=== PATIENT | male | born 1960 | race Caucasian/White ===

== ENCOUNTER → 2017-06-24 | Outpatient (CLI) | payer OTHER ==
--- NOTE | 2017-06-24 13:48 | RAD ---
Examination: Left ribs, four views History: Fell Findings: No definite rib fracture, contour deformity or osteolytic process. Impression: No acute findings left ribs. Reported By:
== END ==
LOC: RAD 12:49
PROVIDERS: ATTEND Psychiatry & Neurology Neurology
DX: R07.89 Other chest pain (principal)
CPT/HCPCS: 71111

== ENCOUNTER → 2017-07-11 | Outpatient (CLI) | payer OTHER ==
[2017-07-11 12:03] LABS: BASOPHILS % (AUTO) 1.1 % (0.2-1.0); EOSINOPHILS # (AUTO) 0.1 x10^3/uL (0.0-0.2); EOSINOPHILS % (AUTO) 3.6 % (0.9-2.9); HEMATOCRIT 34.8 % (42.0-54.0); HEMOGLOBIN 12.2 g/dL (13.5-18.0); LYMPHOCYTES # (AUTO) 0.6 X10^3/uL (1.3-2.9); LYMPHOCYTES % (AUTO) 27.1 % (21.0-51.0); MEAN CORPUSCULAR HEMOGLOBIN 31.7 pg (27.0-34.0); MEAN CORPUSCULAR HGB CONC 34.9 g/dL (33.0-35.0); MEAN CORPUSCULAR VOLUME 90.9 fL (80.0-100.0); MONOCYTES # (AUTO) 0.2 x10^3/uL (0.3-0.8); NEUTROPHILS # (AUTO) 1.2 x10^3/uL (2.2-4.8); NEUTROPHILS % (AUTO) 57.2 % (42.0-75.0); PLATELET COUNT 45 X10^3/uL (150.0-450.0); RED BLOOD COUNT 3.83 X10^6/uL (4.7-6.0); RED CELL DISTRIBUTION WIDTH 15.3 % (11.6-16.5); WHITE BLOOD COUNT 2.1 X10^3/uL (3.6-10.0)
[2017-07-11 12:14] LABS: ALANINE AMINOTRANSFERASE 32 Units/L (12-78); ALBUMIN 2.8 g/dL (3.4-5.0); ALKALINE PHOSPHATASE 94 Units/L (46-116); ASPARTATE AMINO TRANSFERASE 57 Units/L (15-37); BILIRUBIN,DIRECT 0.33 mg/dL (0-0.2); BLOOD UREA NITROGEN 18 mg/dL (7-18); CALCIUM 8.3 mg/dL (8.5-10.1); CARBON DIOXIDE 22.1 mmol/L (21-32); CHLORIDE 108 mmol/L (98-107); COR NA(FOR HYPERGLY) 141 mmol/L (136-145); CREATININE 1.48 mg/dL (0.70-1.30); SODIUM 138 mmol/L (136-145); TOTAL PROTEIN 7.7 g/dL (6.4-8.2); eGFR BLACK RACES > 60 (>60); eGFR NON BLACK RACES 52 (>60)
[2017-07-11 12:43] LABS: PLATELET MORPHOLOGY COMMENT NORMAL (NORMAL)
== END ==
LOC: LAB 11:30
PROVIDERS: ATTEND Nurse Practitioner Family
DX: D69.6 Thrombocytopenia, unspecified (principal)
CPT/HCPCS: 36415; 80048; 80076; 85025

== ENCOUNTER 2017-09-04 20:08 | Emergency (ER) | payer OTHER ==
[2017-09-04 20:22] VITALS: BMI 37.6
[2017-09-04 22:49] LABS: EOSINOPHILS # (AUTO) 0.1 x10^3/uL (0.0-0.2); HEMATOCRIT 38.3 % (42.0-54.0); HEMOGLOBIN 13.5 g/dL (13.5-18.0); LYMPHOCYTES # (AUTO) 0.9 X10^3/uL (1.3-2.9); LYMPHOCYTES % (AUTO) 19.1 % (21.0-51.0); MEAN CORPUSCULAR HEMOGLOBIN 32.3 pg (27.0-34.0); MEAN CORPUSCULAR HGB CONC 35.1 g/dL (33.0-35.0); MEAN CORPUSCULAR VOLUME 91.9 fL (80.0-100.0); MEAN PLATELET VOLUME 7.7 fL (7.4-11.0); MONOCYTES # (AUTO) 0.6 x10^3/uL (0.3-0.8); MONOCYTES % (AUTO) 12.9 % (0.0-13.0); NEUTROPHILS # (AUTO) 3.1 x10^3/uL (2.2-4.8); PLATELET COUNT 55 X10^3/uL (150.0-450.0); RED BLOOD COUNT 4.17 X10^6/uL (4.7-6.0); RED CELL DISTRIBUTION WIDTH 15.8 % (11.6-16.5); WHITE BLOOD COUNT 4.9 X10^3/uL (3.6-10.0)
[2017-09-04 23:04] LABS: ALBUMIN 3.1 g/dL (3.4-5.0); CALCIUM 8.1 mg/dL (8.5-10.1); CARBON DIOXIDE 22.8 mmol/L (21-32); COR CA(FOR HYPOALB) 8.8 mg/dL (8.5-10.1); CREATININE 2.26 mg/dL (0.70-1.30); TOTAL PROTEIN 8.2 g/dL (6.4-8.2)
--- NOTE | 2017-09-05 00:02 | CT ---
CT abdomen and pelvis without contrast Indication: Abdominal pain with nausea and vomiting Technique: Helical images through the abdomen and pelvis without contrast. Coronal and sagittal refor mats provided. Comparison: No recent similar priors available. Findings: Review of bone windows shows no lesion. Limited images through the lower chest shows chroni c mild hyperinflation. Coronary artery calcifications noted. Abdomen: There is markedly cirrhotic in nodular appearing liver, without large lesions seen, within t he limits of a noncontrast study. Recanalization of the umbilical vein with upper abdominal varices n oted. Portal vein enlargement is noted with splenomegaly. Few paraesophageal and perigastric varices noted. The adrenal glands, pancreas and kidneys show no acute abnormality. Minimal vascular calcifica tions noted. The stomach and small bowel are normal. No acute colonic abnormalities seen. Appendix is slightly prominent. Gallstones are seen within the gallbladder which is generally collapsed. Pelvis: The urinary bladder and rectum are normal. Prostate gland is normal. Impression: 1. Slightly prominent appendix without marked periappendiceal stranding. This could be within normal limits but early acute appendicitis is not completely excluded in the correct clinical setting. Close clinical and imaging follow-up recommended. 2. Advanced cirrhosis the liver with portal venous hypertension and upper abdominal varices. 3. Gallstones without specific evidence of acute cholecystitis 4. Mild COPD, spine degenerative changes and other findings as above. Reported By:
--- NOTE | 2017-09-05 00:14 | DR.GENAD ---
HPI - PCP Primary Care Physician: RAHEEL OROZCO - Complaint/Symptoms Chief Complaint Doctors Comments: Patient states that he has an appointment for [facility] tomorrow at 11AM. He has been seen there on several visits. He has cirrhosis of the liver with oortal venous hypertension and upper abdominal varices., Gallstones w/o evidence of acute cholecystitis. He has Advanced cirrhosis of the liver with p;ortal venous hypertension and uper abdominal varicies. Case was discussed with surgery supervisor extrusion Dr Torres and it was decided to have patient transferred to afacility with adequate support personnell. He is in no acute distress. Chief Complaint:: N/V/D FOR THE PAST 3 DAYS HAS APPT IN AM WITH [facility] FOR XRAYS FOR GALLBLADDER WAS TOLD BY [facility] TO COME HERE TO BE SEEN. 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 - Source History Provided: Patient - Mode of Arrival Mode of Arrival: Ambulatory - Timing Onset of Chief Complaint: 09/04/17 PMH - PMH Past Medical History: No Past Medical History: Asthma, Cirrhosis, Diabetes, Headaches, Hypertension, Kidney Stones, Sleep Apnea Past Medical History Comment: CPAP TO SLEEP SETTINGS 15 Past Surgical History: Yes Past Surgical History Comment: CELLULITIS BILATERAL BUTTOCKS I&D - Family History History of Family Medical Conditions: Yes Family Medical History: Diabetes Mellitus, Cancer, [place], Heart Failure, Sudden Cardiac , Hypertension - Social History Does patient currently use any type of tobacco product: No Have you used tobacco products in the last 12 months: No Type of Tobacco Use: None Does any household member use tobacco: No Alcohol Use: None Do you use any recreational Drugs:: No Lives With: Alone Lives Where: Home - infectious screening In the last 2 months have you had wt loss of >10#?: NO Have you had fever, night sweats or hemotysis?: No Have you traveled outside the country in the last 6 months?: No Isolation: Standard ROS - Review of Systems Eyes: No Symptoms Reported ENTM: No Symptoms Reported Respiratoy: No Symptoms Reported Cardiovascular: No Symptoms Reported Gastrointestinal/Abdominal: No Symptoms Reported Neurological: No Symptoms Reported, Headache Integumentary: No Symptoms Reported Hematologic/Lymphatic: No Symptoms Reported Endocrine: No Symptoms Reported Psychiatric: No Symptoms Reported All Other Systems: Reviewed and Negative PE - Vital Signs Vitals: Temperature 98.6 F Pulse Rate [Right Brachial] 95 Pulse Rate 97 Respiratory Rate 22 Blood Pressure [Right Arm] 130/60 Blood Pressure 135/74 O2 Sat by Pulse Oximetry 96 - General General Appearance: Alert, In No Apparent Distress - Head Head Exam: Normal Inspection, Atraumatic - Eyes Eye exam: Normal Appearance, PERRL, EOMI - ENT ENT Exam: Normal Exam External Ear Exam: Normal External Inspection TM/Canal Exam: Bilateral Normal Nose Exam: Normal Nose Exam Mouth Exam: Normal Inspection Throat Exam: Normal Inspection - Neck Neck Exam: Normal Inspection - Chest Chest Inspection: Normal Inspection - Respiratory Respiratory Exam: Normal Lung Sounds Bilat Respiratory Exam: Bilateral Clear to Auscultation - Cardiovascular Cardiovascular Exam: Regular Rate, Normal Rhythm - Abdominal Exam Abdominal Exam: Normal Inspection Abdominal Tenderness: RUQ - Extremities Extremities Exam: Normal Inspection, Full ROM, Edema - Back Back Exam: Normal Inspection, Full ROM - Neurologic Neurological Exam: Alert, Oriented X3, CN II-XII Intact - Psychiatric Psychiatric Exam: Normal Affect - Skin Skin Exam: Warm, Dry Course - Reevaluation 1st: Unchanged - Education/Counseling Educated On: Diagnosis ROR - Labs Reviewed Result Diagrams: 09/04/17 22:42 09/04/17 22:42 Laboratory: WBC 4.9 X10^3/uL (3.6-10.0) 09/04/17 22:42 RBC 4.17 X10^6/uL (4.7-6.0) L 09/04/17 22:42 Hgb 13.5 g/dL (13.5-18.0) 09/04/17 22:42 Hct 38.3 % (42.0-54.0) L 09/04/17 22:42 MCV 91.9 fL (80.0-100.0) 09/04/17 22:42 MCH 32.3 pg (27.0-34.0) 09/04/17 22:42 MCHC 35.1 g/dL (33.0-35.0) H 09/04/17 22:42 RDW 15.8 % (11.6-16.5) 09/04/17 22:42 Plt Count 55 X10^3/uL (150.0-450.0) L 09/04/17 22:42 MPV 7.7 fL (7.4-11.0) 09/04/17 22:42 Neut % (Auto) 64.0 % (42.0-75.0) 09/04/17 22:42 Lymph % (Auto) 19.1 % (21.0-51.0) L 09/04/17 22:42 [place] % (Auto) 12.9 % (0.0-13.0) 09/04/17 22:42 Eos % (Auto) 3.0 % (0.9-2.9) H 09/04/17 22:42 Baso % (Auto) 1.0 % (0.2-1.0) 09/04/17 22:42 Neut # (Auto) 3.1 x10^3/uL (2.2-4.8) 09/04/17 22:42 Lymph # (Auto) 0.9 X10^3/uL (1.3-2.9) L 09/04/17 22:42 [place] # (Auto) 0.6 x10^3/uL (0.3-0.8) 09/04/17 22:42 Eos # (Auto) 0.1 x10^3/uL (0.0-0.2) 09/04/17 22:42 Baso # (Auto) 0.0 X10^3/uL (0.0-0.1) 09/04/17 22:42 Absolute Nucleated RBC 0.0 /100WBC 09/04/17 22:42 Sodium 135 mmol/L (136-145) L 09/04/17 22:42 Corrected Sodium 143 mmol/L (136-145) 09/04/17 22:42 Potassium 4.2 mmol/L (3.5-5.1) 09/04/17 22:42 Chloride 104 mmol/L (98-107) 09/04/17 22:42 Carbon Dioxide 22.8 mmol/L (21-32) 09/04/17 22:42 BUN 26 mg/dL (7-18) H 09/04/17 22:42 Creatinine 2.26 mg/dL (0.70-1.30) H 09/04/17 22:42 Est GFR (MDRD) Af Amer 39 (>60) L 09/04/17 22:42 Est GFR (MDRD) Non-Af 32 (>60) L 09/04/17 22:42 Glucose 422 mg/dL (65-99) H 09/04/17 22:42 Calcium 8.1 mg/dL (8.5-10.1) L 09/04/17 22:42 Corrected Calcium 8.8 mg/dL (8.5-10.1) 09/04/17 22:42 Total Bilirubin 1.90 mg/dL (0.2-1.0) H 09/04/17 22:42 AST 40 Units/L (15-37) H 09/04/17 22:42 ALT 45 Units/L (12-78) 09/04/17 22:42 Alkaline Phosphatase 105 Units/L (46-116) 09/04/17 22:42 Total Protein 8.2 g/dL (6.4-8.2) 09/04/17 22:42 Albumin 3.1 g/dL (3.4-5.0) L 09/04/17 22:42 Globulin 5.1 g/dL (2.5-4.5) H 09/04/17 22:42 Albumin/Globulin Ratio 0.6 Ratio (1.1-2.1) L 09/04/17 22:42 Amylase 64 Units/L (25-115) 09/04/17 22:42 Lipase 391 Units/L (73-393) 09/04/17 22:42 - XRAY XRAY Interpreted by: Radiologist (CT Abdomen/pelvis: Slightly prominent appendix without marked periapendiceal stranding. This could be within normal limits but early acute appendicitis is not completely excluded in the correct clinical settng. Close clinical and imaging follow up recommended. Advanced cirrhosis the liver with portal venous hypertension and upper abdominal varices. Gallstones without specific evidence of acute cholecystitis, mild COPD , spine degenerative changes and other findings.) - Diagnosis Discharge Problem: R/o early appendicitis, Advanced cirrhosis of liver, Portal venous hypertension Cholelithiasis Qualifiers: Cholelithiasis location: gallbladder Cholecystitis presence: without cholecystitis Biliary obstruction: without biliary obstruction Qualified Code(s) : K80.20 - Calculus of gallbladder without cholecystitis without obstruction - Discharge Plan Condition: Stable - Follow ups/Referrals Follow ups/Referrals: VIVEK OROZCO [Primary Care Provider] - 3 days - Instructions
[2017-09-05] MEDS ORDERED: HumuLIN R SUBCUT PRN (00:44)
[2017-09-05] MEDS ORDERED: HumuLIN R ONE (00:50)
[2017-09-05 01:58] VITALS: BP 149/67
[2017-09-05] MEDS ORDERED: SNACK - Diabetic Appropriate PO SCH (20:00)
== END 2017-09-05 02:19 | disposition short-term general hospital (02) ==
LOC: ER 20:24
DX: K80.20 Calculus of gallbladder without cholecystitis without obstruction (principal); K74.60 Unspecified cirrhosis of liver; K76.6 Portal hypertension; J44.9 Chronic obstructive pulmonary disease, unspecified
CPT/HCPCS: 36415; 74176; 80053; 82150; 83690; 85025; 96365; 96372; 99284; 99285; A4222; J1815

== ENCOUNTER 2017-11-07 05:48 | Inpatient (IN) ==
[2017-11-07 06:51] VITALS: BMI 37.6
--- NOTE | 2017-11-07 06:55 | DR.GENAD ---
HPI - HPI Comment HPI Comment: PATIENT SAID HE BLEED FOR 10MINS FROM A NOSE SCRATCH. HE IS COUGHING, PRODUCTIVE YELLOW SPUTUM WITH BLOOD STREAKS. FEVER AT HOME. PATIENT DENIES DYSURIA BUT IS HAVING SEVERE RIGHT FLANK PAIN. HIST CIRRHOSIS WITH CHRONIC LIVER DISEASE. HE ALSO HAVE GALL STONES.ALL THESE CHRONIC SYMPTOMS GOT WORSE 2 DAYS AGO. - Complaint/Symptoms Chief Complaint Doctors Comments: CHEST PAIN, RIGHT FLANK PAIN AND N/V TIMES 2 DAY. - Nurses notes reviewed Nurses Notes Review: Yes - Source History Provided: Patient, EMS - Mode of Arrival Mode of Arrival: Stretcher - Timing Came on: Suddenly - Duration Duration: Constant Duration: Days - Severity Severity: Moderate <MOODY MARROQUIN - Last Filed: 11/07/17 08:29> PMH - PMH Past Medical History: Asthma, Cirrhosis, Diabetes, Headaches, Hypertension, Kidney Stones, Sleep Apnea Past Surgical History: Yes - Family History Family Medical History: Diabetes Mellitus, Cancer, [place], Heart Failure, Sudden Cardiac , Hypertension - Social History Do you use any recreational Drugs:: No <MOODY MARROQUIN - Last Filed: 11/07/17 08:29> ROS - Review of Systems Constitutional: Fever, Weakness, Fatigue, Loss of Appetite. negative: Chills Eyes: No Symptoms Reported ENTM: Nose Discharge, Nose Congestion. negative: Ear Pain, Throat Pain Respiratoy: Productive Cough, Short of Breath, Wheezing, Hemoptysis (BLOOD STREAKS) Cardiovascular: Chest Pain Gastrointestinal/Abdominal: Abdominal Pain, Nausea, Vomiting Genitourinary: negative: Dysuria, Frequency, Hematuria Neurological: Weakness, Dizziness. negative: Headache Musculoskeletal: Back Pain, Muscle Pain, Back Integumentary: negative: Change in Color Hematologic/Lymphatic: Easy Bleeding, Easy Bruising Endocrine: No Symptoms Reported All Other Systems: Reviewed and Negative <MOODY MARROQUIN - Last Filed: 11/07/17 08:29> PE - General Limitations: No Limitations General Appearance: Alert - Head Head Exam: Normal Inspection - Eyes Eye exam: Normal Appearance - ENT ENT Exam: Normal External Ear Exam External Ear Exam: Normal External Inspection TM/Canal Exam: Bilateral Normal Nose Exam: Normal Nose Exam Mouth Exam: Normal Inspection Throat Exam: Normal Inspection - Neck Neck Exam: Trachea Midline - Chest Chest Inspection: Symmetric Chest Wall Rise - Respiratory Respiratory Exam: Normal Lung Sounds Bilat Respiratory Exam: Bilateral Clear to Auscultation - Cardiovascular Cardiovascular Exam: Regular Rate, Normal Rhythm, Normal Heart Sounds - Abdominal Exam Abdominal Exam: Normal Bowel Sounds, Soft, Distention, Tenderness. negative: Guarding, Rebound - Extremities Extremities Exam: Edema - Back Back Exam: Paraspinal Tenderness - Neurologic Neurological Exam: Alert, Oriented X3, CN II-XII Intact. negative: Motor Sensory Deficit - Psychiatric Psychiatric Exam: Anxious - Skin Skin Exam: Normal Color <LUANA MARROQUINAshokYesenia - Last Filed: 11/07/17 08:29> - Vital Signs Vitals: Temperature 98.6 F Pulse Rate [Apical] 91 Pulse Rate 80 Respiratory Rate 16 Blood Pressure [Right Arm] 167/71 Blood Pressure 153/70 O2 Sat by Pulse Oximetry 94 MDM - Differential Diagnosis Differential Diagnosis: ABDOMINAL PAIN, CHEST PAIN, N/V, EASY BLEEDING, [place], BOWEL OBSTRUCTION <LUANA MARROQUINDAGMAR - Last Filed: 11/07/17 08:29> Course - Treatment Treatment: SEE ORDERS. - Education/Counseling Education/Counseling: Patient, Education Educated On: Diagnosis <LUANA MARROQUINAshokYesenia - Last Filed: 11/07/17 08:29> - Consultation Called: 11:00 (Dr Enriquez to admit fo further evaluation) <JIGAR DEL RIO - Last Filed: 11/07/17 11:36> ROR - Labs Reviewed Laboratory Results Reviewed?: Yes Result Diagrams: 11/07/17 06:55 11/07/17 06:55 <MOODY MARROQUIN - Last Filed: 11/07/17 08:29> - Labs Reviewed Result Diagrams: 11/07/17 06:55 11/07/17 06:55 - XRAY XRAY Interpreted by: Radiologist (CT ABD/Pel:There are some foci of subsegmental atelectasis in the right lung base. The left lung base is clear. The liver demonstrates a nodular margin suggestive of chirrhosis. No space occupying disease is identified to the limitations of an unehnance examinatin. Cholelithiasis is present. Thee is no evidence for cholecystitis. Splenomegaly ,portal vein enlargement, intra abdominal varices in the recanalization of the umbilical vein is identified all suggestive of portal hypertension. The adrenal glands and pancreas are within normal limits to the limitations of an unenhanced examination. The adrenal glands and pancreas are within normal limits to the limitations of an unenhanced examination. The kidneys are unobstructed and without stones. No ureteral calculi are identified. No enlarged intraperitoneal or retroperitoneal lymphadenopathy is identified. There are no findigns suggestive of diverticulitis or colitis. The apendix is normal. Examination of the pelvis demonstrated no evidence for pelvic masses, pelvic fluid or elvic lymphadenopathy. No bladder abnormality is identified. No lytic or blastic skeletal lesions are identified. Impression: Cirrhosis, splenomegaly and findings suggestive of portal hypertension, cirrhosis, splenomegaly and findings suggestive of portal hypertension as described, cholelithiasis without evidence for cholecystitis) <JIGAR DEL RIO - Last Filed: 11/07/17 11:36> - Labs Reviewed Laboratory: WBC 6.6 X10^3/uL (3.6-10.0) 11/07/17 06:55 RBC 3.75 X10^6/uL (4.7-6.0) L 11/07/17 06:55 Hgb 12.6 g/dL (13.5-18.0) L 11/07/17 06:55 Hct 36.0 % (42.0-54.0) L 11/07/17 06:55 MCV 96.1 fL (80.0-100.0) 11/07/17 06:55 MCH 33.5 pg (27.0-34.0) 11/07/17 06:55 MCHC 34.9 g/dL (33.0-35.0) 11/07/17 06:55 RDW 15.5 % (11.6-16.5) 11/07/17 06:55 Plt Count 60 X10^3/uL (150.0-450.0) L 11/07/17 06:55 MPV 7.4 fL (7.4-11.0) 11/07/17 06:55 Neut % (Auto) 73.8 % (42.0-75.0) 11/07/17 06:55 Lymph % (Auto) 12.6 % (21.0-51.0) L 11/07/17 06:55 [place] % (Auto) 12.2 % (0.0-13.0) 11/07/17 06:55 Eos % (Auto) 1.0 % (0.9-2.9) 11/07/17 06:55 Baso % (Auto) 0.4 % (0.2-1.0) 11/07/17 06:55 Neut # (Auto) 4.9 x10^3/uL (2.2-4.8) H 11/07/17 06:55 Lymph # (Auto) 0.8 X10^3/uL (1.3-2.9) L 11/07/17 06:55 [place] # (Auto) 0.8 x10^3/uL (0.3-0.8) 11/07/17 06:55 Eos # (Auto) 0.1 x10^3/uL (0.0-0.2) 11/07/17 06:55 Baso # (Auto) 0.0 X10^3/uL (0.0-0.1) 11/07/17 06:55 Absolute Nucleated RBC 0.0 /100WBC 11/07/17 06:55 Sodium 137 mmol/L (136-145) 11/07/17 06:55 Corrected Sodium 140 mmol/L (136-145) 11/07/17 06:55 Potassium 4.4 mmol/L (3.5-5.1) 11/07/17 06:55 Chloride 103 mmol/L (98-107) 11/07/17 06:55 Carbon Dioxide 26.2 mmol/L (21-32) 11/07/17 06:55 BUN 18 mg/dL (7-18) 11/07/17 06:55 Creatinine 1.82 mg/dL (0.70-1.30) H 11/07/17 06:55 Est GFR (MDRD) Af Amer 50 (>60) L 11/07/17 06:55 Est GFR (MDRD) Non-Af 41 (>60) L 11/07/17 06:55 Glucose 207 mg/dL (65-99) H 11/07/17 06:55 Calcium 8.6 mg/dL (8.5-10.1) 11/07/17 06:55 Corrected Calcium 9.5 mg/dL (8.5-10.1) 11/07/17 06:55 Total Bilirubin 5.00 mg/dL (0.2-1.0) H 11/07/17 06:55 AST 45 Units/L (15-37) H 11/07/17 06:55 ALT 32 Units/L (12-78) 11/07/17 06:55 Alkaline Phosphatase 92 Units/L (46-116) 11/07/17 06:55 Ammonia 51 umol/L (11-32) H 11/07/17 09:34 Creatine Kinase 174 Units/L (39-308) 11/07/17 06:55 CK-MB (CK-2) < 1.0 ng/mL (0-4.0) 11/07/17 06:55 CK/CKMB % Calc 0.6 % (<4) 11/07/17 06:55 Troponin I 0.02 ng/mL (0-1.5) 11/07/17 06:55 Total Protein 7.6 g/dL (6.4-8.2) 11/07/17 06:55 Albumin 2.9 g/dL (3.4-5.0) L 11/07/17 06:55 Globulin 4.7 g/dL (2.5-4.5) H 11/07/17 06:55 Albumin/Globulin Ratio 0.6 Ratio (1.1-2.1) L 11/07/17 06:55 Amylase 50 Units/L (25-115) 11/07/17 06:55 Lipase 239 Units/L (73-393) 11/07/17 06:55 Specimen Type Random urine 11/07/17 07:53 Urine Color [place] (YELLOW) 11/07/17 07:53 Urine Appearance Clear (CLEAR) 11/07/17 07:53 Urine pH 5.0 (5.0 - 8.0) 11/07/17 07:53 Ur Specific [place] 1.020 (1.000-1.030) 11/07/17 07:53 Urine Protein 2+ (NEGATIVE) 11/07/17 07:53 Urine Glucose (UA) 1+ (NEGATIVE) 11/07/17 07:53 Urine Ketones 1+ (NEGATIVE) 11/07/17 07:53 Urine Occult Blood 4+ (NEGATIVE) 11/07/17 07:53 Urine Nitrite Negative (NEGATIVE) 11/07/17 07:53 Urine Bilirubin 1+ (NEGATIVE) 11/07/17 07:53 Urine Urobilinogen 3+ (NORMAL) 11/07/17 07:53 Ur Leukocyte Esterase 1+ (NEGATIVE) 11/07/17 07:53 Urine RBC 0-2 /HPF (NONE SEEN) 11/07/17 07:53 Urine WBC 0-2 /HPF (NONE SEEN) 11/07/17 07:53 Ur Squamous Epith Cells Rare /HPF (NEGATIVE) 11/07/17 07:53 Urine Bacteria Trace /HPF (NEGATIVE) 11/07/17 07:53 Hyaline Casts Rare /LPF (NEGATIVE) 11/07/17 07:53 Ur Culture Indicated? No/not indicated 11/07/17 07:53 <MOODY MARROQUIN - Last Filed: 11/07/17 08:29> <JIGAR DEL RIO - Last Filed: 11/07/17 11:36> - Diagnosis Discharge Problem: Increased ammonia level Cirrhosis of liver Qualifiers: Hepatic cirrhosis type: unspecified hepatic cirrhosis Ascites presence: without ascites Qualified Code(s): K74.60 - Unspecified cirrhosis of liver Altered mental status Qualifiers: Altered mental status type: unspecified Qualified Code(s): R41.82 - Altered mental status, unspecified - Discharge Plan Disposition: 09 ADMITTED INPATIENT Condition: Stable - Follow ups/Referrals Follow ups/Referrals: VIVEK OROZCO [Primary Care Provider] - 3 days - Instructions
[2017-11-07] MEDS ORDERED: TORADOL 30 MG VIAL IVP ONE (06:57)
[2017-11-07] MEDS ORDERED: ZOFRAN INJ 4 MG VIAL IVP ONE (06:57)
[2017-11-07] MEDS ORDERED: NS 1000 ML 1,000 ML IV SCH (07:00)
[2017-11-07] MEDS ORDERED: ZOFRAN INJ 4 MG VIAL ONE (07:07)
[2017-11-07] MEDS ORDERED: DILAUDID INJ IVP ONE (07:11)
[2017-11-07] MEDS ORDERED: DILAUDID INJ ONE (07:14)
[2017-11-07 07:21] LABS: BASOPHILS % (AUTO) 0.4 % (0.2-1.0); EOSINOPHILS # (AUTO) 0.1 x10^3/uL (0.0-0.2); HEMOGLOBIN 12.6 g/dL (13.5-18.0); LYMPHOCYTES # (AUTO) 0.8 X10^3/uL (1.3-2.9); LYMPHOCYTES % (AUTO) 12.6 % (21.0-51.0); MEAN CORPUSCULAR HEMOGLOBIN 33.5 pg (27.0-34.0); MEAN CORPUSCULAR HGB CONC 34.9 g/dL (33.0-35.0); MEAN CORPUSCULAR VOLUME 96.1 fL (80.0-100.0); MEAN PLATELET VOLUME 7.4 fL (7.4-11.0); MONOCYTES # (AUTO) 0.8 x10^3/uL (0.3-0.8); MONOCYTES % (AUTO) 12.2 % (0.0-13.0); NEUTROPHILS # (AUTO) 4.9 x10^3/uL (2.2-4.8); NEUTROPHILS % (AUTO) 73.8 % (42.0-75.0); PLATELET COUNT 60 X10^3/uL (150.0-450.0); RED BLOOD COUNT 3.75 X10^6/uL (4.7-6.0); RED CELL DISTRIBUTION WIDTH 15.5 % (11.6-16.5); WHITE BLOOD COUNT 6.6 X10^3/uL (3.6-10.0)
[2017-11-07 07:35] LABS: BLOOD UREA NITROGEN 18 mg/dL (7-18); CALCIUM 8.6 mg/dL (8.5-10.1); CARBON DIOXIDE 26.2 mmol/L (21-32); CHLORIDE 103 mmol/L (98-107); COR NA(FOR HYPERGLY) 140 mmol/L (136-145); CREATININE 1.82 mg/dL (0.70-1.30); SODIUM 137 mmol/L (136-145); TROPONIN I 0.02 ng/mL (0-1.5); eGFR NON BLACK RACES 41 (>60)
[2017-11-07 07:39] LABS: ALANINE AMINOTRANSFERASE 32 Units/L (12-78); ALBUMIN 2.9 g/dL (3.4-5.0); ALKALINE PHOSPHATASE 92 Units/L (46-116); AMYLASE 50 Units/L (25-115); ASPARTATE AMINO TRANSFERASE 45 Units/L (15-37); CKMB % 0.6 % (<4); COR CA(FOR HYPOALB) 9.5 mg/dL (8.5-10.1); CREATINE KINASE 174 Units/L (39-308); CREATINE KINASE MB < 1.0 ng/mL (0-4.0); LIPASE 239 Units/L (73-393); TOTAL PROTEIN 7.6 g/dL (6.4-8.2)
[2017-11-07] MEDS ORDERED: PHENERGAN INJ 25 MG IVP ONE (07:52)
[2017-11-07] MEDS ORDERED: PHENERGAN INJ 25 MG IV ONE (07:54)
[2017-11-07] MEDS ORDERED: PHENERGAN INJ 25 MG ONE (07:55)
[2017-11-07 08:22] LABS: BILIRUBIN,URINE 1+ (NEGATIVE); BLOOD/HEMOGLOBIN,URINE 4+ (NEGATIVE); GLUCOSE, URINE 1+ (NEGATIVE); KETONES,URINE 1+ (NEGATIVE); LEUKOCYTE ESTERASE ,URINE 1+ (NEGATIVE); NITRITES,URINE NEGATIVE (NEGATIVE); PROTEIN,URINE 2+ (NEGATIVE); UROBILINOGEN,URINE 3+ (NORMAL)
--- NOTE | 2017-11-07 08:33 | CT ---
HISTORY: Left flank pain Study: CT abdomen pelvis without contrast Comparison: 09/04/2017 Technique: Axial noncontrast images with coronal and sagittal reformats. Dose reduction procedures we re used with mA/kv adjusted for body size. Findings: There are some foci of subsegmental atelectasis in the right lung base. The left lung base is clear. The liver demonstrates a nodular margin suggestive of cirrhosis. No space-occupying disease is identi fied to the limitations of an unenhanced examination. Cholelithiasis is present. There is no evidence for cholecystitis. Splenomegaly, portal vein enlargement, intra-abdominal varices in and recanalizat ion of the umbilical vein is identified all suggestive of portal hypertension. The adrenal glands and pancreas are within normal limits to the limitations of an unenhanced examination. The kidneys are u nobstructed and without stones. No ureteral calculi are identified. No enlarged intraperitoneal or re troperitoneal lymphadenopathy is identified. There are no findings suggestive of diverticulitis or co litis. The appendix is normal. Examination of the pelvis demonstrated no evidence for pelvic masses, pelvic fluid, or pelvic lymphadenopathy. No bladder abnormality is identified. No lytic or blastic sk eletal lesions are identified. IMPRESSION: No evidence for obstructing renal or ureteral calculi Cirrhosis, splenomegaly, and findings suggestive of portal hypertension as described above Cholelithiasis without evidence for cholecystitis Reported By:
[2017-11-07 08:47] LABS: APPEARANCE,URINE CLEAR (CLEAR); COLOR,URINE ORANGE (YELLOW); RBC,URINE 0-2 /HPF (NONE SEEN); SQUAMOUS EPITHELIAL CELL,UR RARE /HPF (NEGATIVE)
[2017-11-07 08:48] LABS: BACTERIA,URINE TRACE /HPF (NEGATIVE); HYALINE CASTS, URINE RARE /LPF (NEGATIVE)
[2017-11-07] MEDS ORDERED: INVANZ INJ 1 GM VIAL ONE (10:19)
[2017-11-07] MEDS ORDERED: NS 100 ML IV + SPIKE MINIBAG* 100 ML IV ONE (10:19)
[2017-11-07] MEDS: CHRONULAC PO SCH (12:22)
--- NOTE | 2017-11-07 15:13 | RAD ---
Exam: Portable chest History 57-year-old male with cough and wheezing Comparison: Previous chest radiograph from 06/24/2017. Findings: Overall heart size and pulmonary vasculature are normal. Patchy infiltrate is seen at the right base. In addition early infiltrate may be present at the left base as well. Remainder the lungs are clear. No significant effusion on either side. Impression: Right basilar infiltrate. Possible developing infiltrate is also noted at the left base Reported By:
[2017-11-07] MEDS: NS 1000 ML 1,000 ML IV SCH (15:21)
[2017-11-07] MEDS: NEURONTIN CAP 300 MG PO SCH ×2 (15:21→21:41)
[2017-11-07] MEDS: ATIVAN TAB 0.5 MG PO SCH ×2 (15:21→21:41)
[2017-11-07] MEDS: HumuLIN R SUBCUT PRN ×2 (17:25→20:10)
[2017-11-07] MEDS: COREG TAB 6.25 MG PO SCH (20:08)
[2017-11-07] MEDS: SNACK - Diabetic Appropriate PO SCH (20:09)
[2017-11-08] MEDS ORDERED: TORADOL 30 MG VIAL IVP ONE (00:57)
[2017-11-08] MEDS ORDERED: TORADOL 30 MG VIAL ONE (01:00)
[2017-11-08] MEDS: ULTRAM PO PRN ×2 (05:25→16:16)
[2017-11-08] MEDS: ATIVAN TAB 0.5 MG PO SCH ×3 (05:28→22:17)
[2017-11-08] MEDS: NS 1000 ML 1,000 ML IV SCH ×3 (05:28→17:31)
[2017-11-08] MEDS: NEURONTIN CAP 300 MG PO SCH ×3 (05:30→22:17)
[2017-11-08] MEDS: HumuLIN R SUBCUT PRN ×4 (06:00→23:39)
[2017-11-08 06:11] LABS: BASOPHILS % (AUTO) 0.4 % (0.2-1.0); EOSINOPHILS # (AUTO) 0.1 x10^3/uL (0.0-0.2); EOSINOPHILS % (AUTO) 1.3 % (0.9-2.9); HEMATOCRIT 32.6 % (42.0-54.0); HEMOGLOBIN 11.4 g/dL (13.5-18.0); LYMPHOCYTES # (AUTO) 0.9 X10^3/uL (1.3-2.9); LYMPHOCYTES % (AUTO) 17.4 % (21.0-51.0); MEAN CORPUSCULAR HEMOGLOBIN 33.9 pg (27.0-34.0); MEAN CORPUSCULAR HGB CONC 35.1 g/dL (33.0-35.0); MEAN CORPUSCULAR VOLUME 96.4 fL (80.0-100.0); MEAN PLATELET VOLUME 7.9 fL (7.4-11.0); MONOCYTES # (AUTO) 0.8 x10^3/uL (0.3-0.8); MONOCYTES % (AUTO) 15.9 % (0.0-13.0); NEUTROPHILS # (AUTO) 3.3 x10^3/uL (2.2-4.8); PLATELET COUNT 53 X10^3/uL (150.0-450.0); RED BLOOD COUNT 3.38 X10^6/uL (4.7-6.0); RED CELL DISTRIBUTION WIDTH 15.5 % (11.6-16.5); WHITE BLOOD COUNT 5.1 X10^3/uL (3.6-10.0)
[2017-11-08 06:18] LABS: ALBUMIN 2.6 g/dL (3.4-5.0); CALCIUM 7.9 mg/dL (8.5-10.1); CARBON DIOXIDE 23.9 mmol/L (21-32); CREATININE 2.01 mg/dL (0.70-1.30)
[2017-11-08] MEDS ORDERED: PriLOSEC PO ONE (08:03)
[2017-11-08] MEDS ORDERED: CHRONULAC ONE (08:03)
[2017-11-08] MEDS ORDERED: MICRO K EXTEN CAP 10 MEQ PO ONE (08:03)
[2017-11-08] MEDS ORDERED: COREG TAB 6.25 MG ONE (08:03)
[2017-11-08] MEDS ORDERED: ALDACTONE TAB 25 MG ONE (08:03)
[2017-11-08] MEDS: CHRONULAC PO SCH (08:13)
[2017-11-08] MEDS: ALDACTONE TAB 25 MG PO SCH (08:13)
[2017-11-08] MEDS: LASIX PO SCH (08:14)
[2017-11-08] MEDS: PriLOSEC PO SCH (08:14)
[2017-11-08] MEDS: MICRO K EXTEN CAP 10 MEQ PO SCH (08:14)
[2017-11-08] MEDS: COREG TAB 6.25 MG PO SCH ×2 (08:14→20:50)
[2017-11-08] MEDS ORDERED: PATIENT'S HOME MEDICATION (Omeprazole [Omeprazole] 40 MG) PO SCH (09:00)
[2017-11-08] MEDS ORDERED: SPIRONOLACTONE 100 MG PO SCH (09:00)
[2017-11-08] MEDS ORDERED: LEVAQUIN PREMIX IV 500 MG 500 MG/100 ML BAG IV SCH (09:00)
[2017-11-08] MEDS ORDERED: PROVENTIL NEB TX 0.083% 2.5MG/ 3ML NEB ONE (09:00)
[2017-11-08] MEDS ORDERED: PATIENT'S HOME MEDICATION (Potassium Chloride [Potassium Chloride] 10 MEQ) PO SCH (09:00)
[2017-11-08] MEDS ORDERED: LEVAQUIN PREMIX IV 500 MG 500 MG/100 ML BAG IV ONE (09:16)
[2017-11-08] MEDS ORDERED: PROVENTIL NEB TX 0.083% 2.5MG/ 3ML ONE (09:18)
[2017-11-08] MEDS: LEVAQUIN PREMIX IV 750 MG 750 MG/150 ML BAG IV SCH (10:00)
[2017-11-08] MEDS: DUONEB 0.5 MG/3 MG NEB SCH ×4 (10:19→21:50)
[2017-11-08] MEDS ORDERED: HumuLIN R ONE (11:35)
[2017-11-08] MEDS ORDERED: DUONEB 0.5 MG/3 MG ONE (12:00)
--- NOTE | 2017-11-08 14:43 | DR.H&P ---
H&P - History & Physical for Day of: H&P Date: 11/07/17 - Chief Complaint Chief Complaint: COUGH, SPUTUM PRODUCTION, HEMATURIA, ABDOMINAL PAIN. SOB - History of Present Illness History of Present Illness: 57 WM ER ADMISSION WITH CO EXCESSIVE BLEEDING, CO BLOOD IN URINE AND ABDOMINAL PAIN, PT CO INCREASE SOB AND PRODUCTIVE COUGH. PT HAD CT ABD PELVIS IN ED, CXR PNEUMONIA. PT HAS CHRONIC LIVER FAILURE DUE TO "FATTY LIVER DISEASE". PT STATES HE IS FOLLOWED BY [facility] IN [place] AND HAS SEEN RAHEEL OROZCO NP AT [facility]. PT HAS HX OF DM AND HTN. PT HAD GENERALIZED JAUNDICE AND INCREASED RESP DISTRESS, ELEVATED LFT'S. PT ADMITTED TO ICU FOR TREATMENT AND EVALUATION OF ACUTE ILLNESS. - Past Medical History Past Medical History: Asthma, Cirrhosis, Diabetes, Headaches, Hypertension, Kidney Stones, Sleep Apnea - Past Surgical History Surgical History: Unknown - Family History Family Medical History: Diabetes Mellitus, Cancer, [place], Heart Failure, Sudden Cardiac , Hypertension - Social History Does patient currently use any type of tobacco product: No Have you used tobacco products in the last 12 months: No Type of Tobacco Use: Cigarettes How many years tobacco product used: 20 Packs per day or dips/chews per day: 3 Does any household member use tobacco: No Alcohol Use: None Drug Use: None - Medications Home Medications: acetaminophen [From Lortab] Allergy (Verified 09/04/17 20:23) aspirin Allergy (Verified 09/04/17 20:23) hydrocodone [From Lortab] Allergy (Verified 09/04/17 20:23) morphine Allergy (Verified 09/04/17 20:23) CONTINUE taking the following medications carvedilol 6.25 mg PO BID 11/07/17 [History] furosemide [Lasix] 40 mg PO DAILY 11/07/17 [History] gabapentin 300 mg PO TID 11/07/17 [History] insulin glargine [Lantus U-100 Insulin] 70 units SUB-Q BID 11/07/17 [History] lorazepam 0.5 mg PO TID 11/07/17 [History] omeprazole 40 mg PO DAILY 11/07/17 [History] ondansetron 4 mg PO Q4-6H PRN 11/07/17 [History] potassium chloride 10 meq PO DAILY 11/07/17 [History] spironolactone [Aldactone] 100 mg PO DAILY 11/07/17 [History] tramadol 50 mg PO TID PRN 11/07/17 [History] - Review of Systems Constitutional: Fever, Chills, Weakness Eyes: No Symptoms Reported ENT: No Symptoms Reported Respiratory: Shortness of Breath, SOB with Excertion, Sputum Cardiovascular: Edema Gastrointestinal: Nausea Genitourinary: No Symptoms Reported Musculoskeletal: Back Pain, Leg Pain Skin: Jaundice Neurological: Weakness, Confusion - Physical Exam Vital Signs: Temperature 98.1 F Pulse Rate [Apical] 86 Pulse Rate 85 Respiratory Rate 20 Blood Pressure [Right Arm] 146/67 Blood Pressure 153/70 O2 Sat by Pulse Oximetry 95 Oriented: Normal Eyes: Other (JAUNDICE TO SCLERA) Ear: Normal Nose: Normal Throat: Dry Respiratory: Rhonchi Throughout, RLL Diminished, LLL Diminished Cardiovascular: Normal, Murmur : Normal Palpation: Liver Enlarged, Other (DIFFUSE ABDOMINAL DISTENTION) Tenderness: RUQ, LUQ, Epigastric, Mild Skin: Other (DIFFUSE JAUNDICE) Psychiatric: Anxiety Affect: Anxious Speech Pattern: Clear, Appropriate - Assessment/Plan (1) Respiratory distress Status: Acute Plan: ADMIT ICU, RESP CONSULT. PNEUMONIA PATHWAY, AM CXR, VERIFY HOME MEDS. RESUME LACTULOSE, DIURETICS, SPUTUM SPECIMEN. SUPPLEMENTAL O2. I & OS, BLOOD SUGAR CONTROL, CARDIAC AND BP MONIORING (2) Hypertension Status: Acute (3) Diabetes Status: Acute (4) Advanced cirrhosis of liver Status: Acute (5) Portal venous hypertension Status: Acute (6) Cholelithiasis Qualifiers: Cholelithiasis location: gallbladder Cholecystitis presence: without cholecystitis Biliary obstruction: without biliary obstruction Qualified Code(s): K80.20 - Calculus of gallbladder without cholecystitis without obstruction Status: Acute (7) Cirrhosis of liver Qualifiers: Hepatic cirrhosis type: unspecified hepatic cirrhosis Ascites presence: without ascites Qualified Code(s): K74.60 - Unspecified cirrhosis of liver Status: Acute (8) Increased ammonia level Status: Acute (9) Altered mental status Qualifiers: Altered mental status type: unspecified Qualified Code(s): R41.82 - Altered mental status, unspecified Status: Acute - Allergies Allergies/Adverse Reactions: Allergies Allergy/AdvReac Type Severity Reaction Status Date / Time acetaminophen [From Lortab] Allergy Verified 09/04/17 20:23 aspirin Allergy Verified 09/04/17 20:23 hydrocodone [From Lortab] Allergy Verified 09/04/17 20:23 morphine Allergy Verified 09/04/17 20:23
[2017-11-08 14:49] LABS: ABG BASE EXCESS -2.2 mmol/L (-2.0-2.0); ABG HCO3 22.4 mmol/L (22-26)
[2017-11-08 14:50] LABS: ABG ALLEN TEST POS
[2017-11-08] MEDS: MAGIC MOUTHWASH MT PRN (18:41)
[2017-11-08] MEDS: SNACK - Diabetic Appropriate PO SCH (22:16)
[2017-11-09] MEDS: DUONEB 0.5 MG/3 MG NEB SCH ×6 (01:51→21:27)
[2017-11-09] MEDS: ULTRAM PO PRN ×3 (03:07→21:20)
[2017-11-09] MEDS: NS 1000 ML 1,000 ML IV SCH ×3 (04:24→15:03)
[2017-11-09] MEDS: ATIVAN TAB 0.5 MG PO SCH ×3 (06:18→21:20)
[2017-11-09] MEDS: NEURONTIN CAP 300 MG PO SCH ×3 (06:19→21:20)
[2017-11-09] MEDS: HumuLIN R SUBCUT PRN ×4 (06:26→21:21)
[2017-11-09 06:43] LABS: BASOPHILS % (AUTO) 0.4 % (0.2-1.0); EOSINOPHILS # (AUTO) 0.1 x10^3/uL (0.0-0.2); EOSINOPHILS % (AUTO) 2.7 % (0.9-2.9); HEMATOCRIT 32.2 % (42.0-54.0); HEMOGLOBIN 11.2 g/dL (13.5-18.0); LYMPHOCYTES # (AUTO) 0.9 X10^3/uL (1.3-2.9); LYMPHOCYTES % (AUTO) 18.1 % (21.0-51.0); MEAN CORPUSCULAR HEMOGLOBIN 33.5 pg (27.0-34.0); MEAN CORPUSCULAR HGB CONC 34.7 g/dL (33.0-35.0); MEAN CORPUSCULAR VOLUME 96.6 fL (80.0-100.0); MEAN PLATELET VOLUME 7.7 fL (7.4-11.0); MONOCYTES # (AUTO) 0.8 x10^3/uL (0.3-0.8); MONOCYTES % (AUTO) 15.6 % (0.0-13.0); NEUTROPHILS # (AUTO) 3.1 x10^3/uL (2.2-4.8); NEUTROPHILS % (AUTO) 63.2 % (42.0-75.0); PLATELET COUNT 55 X10^3/uL (150.0-450.0); RED BLOOD COUNT 3.33 X10^6/uL (4.7-6.0); RED CELL DISTRIBUTION WIDTH 15.3 % (11.6-16.5); WHITE BLOOD COUNT 4.9 X10^3/uL (3.6-10.0)
[2017-11-09] MEDS: MAGIC MOUTHWASH MT PRN ×3 (07:00→21:20)
[2017-11-09 07:27] LABS: ALBUMIN 2.4 g/dL (3.4-5.0); CALCIUM 7.8 mg/dL (8.5-10.1); CARBON DIOXIDE 26.1 mmol/L (21-32); COR CA(FOR HYPOALB) 9.1 mg/dL (8.5-10.1); CREATININE 2.25 mg/dL (0.70-1.30); TOTAL PROTEIN 6.9 g/dL (6.4-8.2)
--- NOTE | 2017-11-09 07:30 | RAD ---
Examination: Portable AP chest History: Dyspnea Comparison reference 11/06/2017 Findings: Continued normal heart size. There is no convincing evidence for pneumonia, atelectasis or other airspace disease. The pleural spaces are well defined. No pneumothorax is seen. Impression: No acute chest findings identified. The Reported By:
[2017-11-09] MEDS: COREG TAB 6.25 MG PO SCH ×2 (08:31→21:20)
[2017-11-09] MEDS: MICRO K EXTEN CAP 10 MEQ PO SCH (08:31)
[2017-11-09] MEDS: PriLOSEC PO SCH (08:31)
[2017-11-09] MEDS: CHRONULAC PO SCH ×2 (08:31→21:20)
[2017-11-09] MEDS: ALDACTONE TAB 25 MG PO SCH (08:31)
[2017-11-09] MEDS: LASIX PO SCH (08:31)
--- NOTE | 2017-11-09 11:08 | PCM.PROG ---
Progress Note - Progress Note for Day of Date: 11/09/17 - Subjective Subjective: 57 WM ER ADMISSION WITH PNEUMONIA AND LIVER FAILURE WITH ELEVATED AMMONIA LEVELS, FLUID RETENTION AND INCREASE PO. PT IS CURRENTLY ON PNEUMONIA PROTOCOL, CO INCREASE SLEEPINESS. PT HAS INCREASED LABOR RESP. PT DENIES PAIN THIS AM. IMPROVING BILIRUBIN, AMMONIA 78 THIS AM. INCREASED LACTULOSE, CONSULT PHARMACY ABOUT RENAL DOSE FOR ATBX, CONTINUE PULMONARY TOILETING - Past Medical Family Social History Past Med/Fam/Surg Hx: No changes since H&P Allergies: Allergies acetaminophen [From Lortab] Allergy (Verified 09/04/17 20:23) aspirin Allergy (Verified 09/04/17 20:23) hydrocodone [From Lortab] Allergy (Verified 09/04/17 20:23) morphine Allergy (Verified 09/04/17 20:) - Review of Systems ROS: No change since H&P - Vital Signs and I&O's Vital Signs: Temperature 98.7 F Pulse Rate [Apical] 88 Pulse Rate 86 Respiratory Rate 20 Blood Pressure [Right Arm] 135/60 Blood Pressure 153/70 O2 Sat by Pulse Oximetry 98 Intake and Output: Intake & Output 11/06/17 11/07/17 11/08/17 11/09/17 11:59 11:59 11:59 11:59 Intake Total 1340 / 1340 2160 / 2160 Output Total 50 / 50 900 / 900 Balance 1290 / 1290 1260 / 1260 - Physical Exam Oriented: Normal Eyes: Other (JAUNDICE TO SCLERA) Ear: Normal Nose: Normal Throat: Dry Respiratory: Diminished, Rhonchi Cardiovascular: Normal, Murmur : Normal Tenderness: RUQ, LUQ, Epigastric, Mild Skin: Other (DIFFUSE JAUNDICE) Psychiatric: Anxiety Affect: Anxious Speech Pattern: Clear, Appropriate - Laboratory and Diagnostics Result Diagrams: 11/09/17 06:15 11/09/17 06:15 Labs: 11/08/17 09:38 Sputum - Expectorated Sputum - Final Laboratory WBC 4.9 X10^3/uL (3.6-10.0) 11/09/17 06:15 RBC 3.33 X10^6/uL (4.7-6.0) L 11/09/17 06:15 Hgb 11.2 g/dL (13.5-18.0) L 11/09/17 06:15 Hct 32.2 % (42.0-54.0) L 11/09/17 06:15 MCV 96.6 fL (80.0-100.0) 11/09/17 06:15 MCH 33.5 pg (27.0-34.0) 11/09/17 06:15 MCHC 34.7 g/dL (33.0-35.0) 11/09/17 06:15 RDW 15.3 % (11.6-16.5) 11/09/17 06:15 Plt Count 55 X10^3/uL (150.0-450.0) L 11/09/17 06:15 MPV 7.7 fL (7.4-11.0) 11/09/17 06:15 Neut % (Auto) 63.2 % (42.0-75.0) 11/09/17 06:15 Lymph % (Auto) 18.1 % (21.0-51.0) L 11/09/17 06:15 [place] % (Auto) 15.6 % (0.0-13.0) H 11/09/17 06:15 Eos % (Auto) 2.7 % (0.9-2.9) 11/09/17 06:15 Baso % (Auto) 0.4 % (0.2-1.0) 11/09/17 06:15 Neut # (Auto) 3.1 x10^3/uL (2.2-4.8) 11/09/17 06:15 Lymph # (Auto) 0.9 X10^3/uL (1.3-2.9) L 11/09/17 06:15 [place] # (Auto) 0.8 x10^3/uL (0.3-0.8) 11/09/17 06:15 Eos # (Auto) 0.1 x10^3/uL (0.0-0.2) 11/09/17 06:15 Baso # (Auto) 0.0 X10^3/uL (0.0-0.1) 11/09/17 06:15 Absolute Nucleated RBC 0.0 /100WBC 11/09/17 06:15 Sample Site Rra 11/08/17 14:39 ABG pH 7.390 (7.35-7.45) 11/08/17 14:39 ABG pCO2 37.0 mmHg (35.0-45.0) 11/08/17 14:39 ABG pO2 67.0 mmHg (80.0-100.0) L 11/08/17 14:39 ABG HCO3 22.4 mmol/L (22-26) 11/08/17 14:39 ABG O2 Saturation 93.0 % (90-100) 11/08/17 14:39 ABG Base Excess -2.2 mmol/L (-2.0-2.0) L 11/08/17 14:39 Sanjeev Test Pos 11/08/17 14:39 A-a Gradient 86.0 mmHg 11/08/17 14:39 FiO2 28.000 11/08/17 14:39 Blood Gas Comments [place] well cs 11/08/17 14:39 Sodium 137 mmol/L (136-145) 11/09/17 06:15 Corrected Sodium 140 mmol/L (136-145) 11/09/17 06:15 Potassium 4.7 mmol/L (3.5-5.1) 11/09/17 06:15 Chloride 106 mmol/L (98-107) 11/09/17 06:15 Carbon Dioxide 26.1 mmol/L (21-32) 11/09/17 06:15 BUN 33 mg/dL (7-18) H 11/09/17 06:15 Creatinine 2.25 mg/dL (0.70-1.30) H 11/09/17 06:15 Est GFR (MDRD) Af Amer 39 (>60) L 11/09/17 06:15 Est GFR (MDRD) Non-Af 32 (>60) L 11/09/17 06:15 Glucose 214 mg/dL (65-99) H 11/09/17 06:15 POC Glucose (mg/dL) 186 mg/dL (65-99) H 11/08/17 05:21 Calcium 7.8 mg/dL (8.5-10.1) L 11/09/17 06:15 Corrected Calcium 9.1 mg/dL (8.5-10.1) 11/09/17 06:15 Total Bilirubin 2.20 mg/dL (0.2-1.0) H 11/09/17 06:15 AST 35 Units/L (15-37) 11/09/17 06:15 ALT 28 Units/L (12-78) 11/09/17 06:15 Alkaline Phosphatase 77 Units/L (46-116) 11/09/17 06:15 Ammonia 27 umol/L (11-32) 11/09/17 06:15 Creatine Kinase 174 Units/L (39-308) 11/07/17 06:55 CK-MB (CK-2) < 1.0 ng/mL (0-4.0) 11/07/17 06:55 CK/CKMB % Calc 0.6 % (<4) 11/07/17 06:55 Troponin I 0.02 ng/mL (0-1.5) 11/07/17 06:55 Total Protein 6.9 g/dL (6.4-8.2) 11/09/17 06:15 Albumin 2.4 g/dL (3.4-5.0) L 11/09/17 06:15 Globulin 4.5 g/dL (2.5-4.5) 11/09/17 06:15 Albumin/Globulin Ratio 0.5 Ratio (1.1-2.1) L 11/09/17 06:15 Amylase 50 Units/L (25-115) 11/07/17 06:55 Lipase 239 Units/L (73-393) 11/07/17 06:55 Specimen Type Random urine 11/07/17 07:53 Urine Color [place] (YELLOW) 11/07/17 07:53 Urine Appearance Clear (CLEAR) 11/07/17 07:53 Urine pH 5.0 (5.0 - 8.0) 11/07/17 07:53 Ur Specific [place] 1.020 (1.000-1.030) 11/07/17 07:53 Urine Protein 2+ (NEGATIVE) 11/07/17 07:53 Urine Glucose (UA) 1+ (NEGATIVE) 11/07/17 07:53 Urine Ketones 1+ (NEGATIVE) 11/07/17 07:53 Urine Occult Blood 4+ (NEGATIVE) 11/07/17 07:53 Urine Nitrite Negative (NEGATIVE) 11/07/17 07:53 Urine Bilirubin 1+ (NEGATIVE) 11/07/17 07:53 Urine Urobilinogen 3+ (NORMAL) 11/07/17 07:53 Ur Leukocyte Esterase 1+ (NEGATIVE) 11/07/17 07:53 Urine RBC 0-2 /HPF (NONE SEEN) 11/07/17 07:53 Urine WBC 0-2 /HPF (NONE SEEN) 11/07/17 07:53 Ur Squamous Epith Cells Rare /HPF (NEGATIVE) 11/07/17 07:53 Urine Bacteria Trace /HPF (NEGATIVE) 11/07/17 07:53 Hyaline Casts Rare /LPF (NEGATIVE) 11/07/17 07:53 Ur Culture Indicated? No/not indicated 11/07/17 07:53 - Plan (1) Respiratory distress Status: Acute Plan: CONTINUE RESP THERAPY, PULMONARY TOILETING. PNEUMONIA PATHWAY, AM CXR, VERIFY HOME MEDS. DIURETICS, SPUTUM SPECIMEN. SUPPLEMENTAL O2. I & OS, BLOOD SUGAR CONTROL, CARDIAC AND BP MONIORING (2) Hypertension Status: Acute (3) Diabetes Status: Acute Plan: SSI (4) Advanced cirrhosis of liver Status: Acute (5) Portal venous hypertension Status: Acute (6) Cholelithiasis Status: Acute Qualifiers: Cholelithiasis location: gallbladder Cholecystitis presence: without cholecystitis Biliary obstruction: without biliary obstruction Qualified Code(s): K80.20 - Calculus of gallbladder without cholecystitis without obstruction (7) Cirrhosis of liver Status: Acute Qualifiers: Hepatic cirrhosis type: unspecified hepatic cirrhosis Ascites presence: without ascites Qualified Code(s): K74.60 - Unspecified cirrhosis of liver (8) Increased ammonia level Status: Acute Plan: INCREASE LACTULOSE BID, REPEAT AM AMMONIA (9) Altered mental status Status: Acute Qualifiers: Altered mental status type: unspecified Qualified Code(s): R41.82 - Altered mental status, unspecified
[2017-11-09] MEDS ORDERED: CONSULT PHARMACY - ANTIBIOTIC XX SCH (12:00)
[2017-11-09] MEDS: SNACK - Diabetic Appropriate PO SCH (21:30)
[2017-11-09] MEDS: FLONASE NASAL SPRAY ENOSTRIL SCH (21:31)
[2017-11-10] MEDS: DUONEB 0.5 MG/3 MG NEB SCH ×6 (01:49→20:19)
[2017-11-10 05:15] LABS: BASOPHILS % (AUTO) 0.6 % (0.2-1.0); EOSINOPHILS # (AUTO) 0.2 x10^3/uL (0.0-0.2); EOSINOPHILS % (AUTO) 2.3 % (0.9-2.9); HEMATOCRIT 34.1 % (42.0-54.0); HEMOGLOBIN 11.7 g/dL (13.5-18.0); LYMPHOCYTES # (AUTO) 0.7 X10^3/uL (1.3-2.9); LYMPHOCYTES % (AUTO) 11.3 % (21.0-51.0); MEAN CORPUSCULAR HEMOGLOBIN 33.1 pg (27.0-34.0); MEAN CORPUSCULAR HGB CONC 34.2 g/dL (33.0-35.0); MEAN CORPUSCULAR VOLUME 96.8 fL (80.0-100.0); MEAN PLATELET VOLUME 7.9 fL (7.4-11.0); MONOCYTES # (AUTO) 0.8 x10^3/uL (0.3-0.8); MONOCYTES % (AUTO) 13.2 % (0.0-13.0); NEUTROPHILS # (AUTO) 4.7 x10^3/uL (2.2-4.8); NEUTROPHILS % (AUTO) 72.6 % (42.0-75.0); PLATELET COUNT 78 X10^3/uL (150.0-450.0); RED BLOOD COUNT 3.52 X10^6/uL (4.7-6.0); RED CELL DISTRIBUTION WIDTH 15.2 % (11.6-16.5); WHITE BLOOD COUNT 6.5 X10^3/uL (3.6-10.0)
[2017-11-10] MEDS: NEURONTIN CAP 300 MG PO SCH ×3 (05:29→21:02)
[2017-11-10] MEDS: ATIVAN TAB 0.5 MG PO SCH ×3 (05:29→21:02)
[2017-11-10] MEDS: HumuLIN R SUBCUT PRN ×4 (05:31→21:03)
[2017-11-10] MEDS: NS 1000 ML 1,000 ML IV SCH ×2 (05:49→18:18)
[2017-11-10 06:14] LABS: ABG ALLEN TEST POS; ABG BASE EXCESS 0.6 mmol/L (-2.0-2.0)
[2017-11-10 06:28] LABS: ALBUMIN 2.5 g/dL (3.4-5.0); CALCIUM 8.3 mg/dL (8.5-10.1); CARBON DIOXIDE 26.6 mmol/L (21-32); COR CA(FOR HYPOALB) 9.5 mg/dL (8.5-10.1); CREATININE 1.92 mg/dL (0.70-1.30); TOTAL PROTEIN 7.3 g/dL (6.4-8.2)
[2017-11-10] MEDS: ULTRAM PO PRN ×2 (07:00→22:12)
--- NOTE | 2017-11-10 08:26 | RAD ---
Examination: AP chest History: Pneumonia Comparison reference 11/09/2017 Findings: Continued normal heart size. There is now suggestion of a diffuse right upper lobe infiltra te without obvious consolidation, extrapulmonary air or pleural fluid. Impression: Developing right upper lobe infiltrate consistent with pneumonia. Reported By:
[2017-11-10] MEDS: ALDACTONE TAB 25 MG PO SCH (08:29)
[2017-11-10] MEDS ORDERED: DUONEB 0.5 MG/3 MG ONE (08:41)
[2017-11-10] MEDS: FLONASE NASAL SPRAY ENOSTRIL SCH (08:42)
[2017-11-10] MEDS: LASIX PO SCH (08:42)
[2017-11-10] MEDS: COREG TAB 6.25 MG PO SCH ×2 (08:42→21:02)
[2017-11-10] MEDS: CHRONULAC PO SCH ×2 (08:42→21:02)
[2017-11-10] MEDS: PriLOSEC PO SCH (08:43)
[2017-11-10] MEDS: MICRO K EXTEN CAP 10 MEQ PO SCH (08:43)
[2017-11-10] MEDS: LEVAQUIN PREMIX IV 750 MG 750 MG/150 ML BAG IV SCH (09:03)
[2017-11-10] MEDS: SNACK - Diabetic Appropriate PO SCH (21:02)
[2017-11-11] MEDS: DUONEB 0.5 MG/3 MG NEB SCH ×6 (01:16→21:03)
[2017-11-11] MEDS: NS 1000 ML 1,000 ML IV SCH ×3 (05:13→21:04)
[2017-11-11] MEDS: NEURONTIN CAP 300 MG PO SCH ×3 (05:13→21:05)
[2017-11-11] MEDS: ATIVAN TAB 0.5 MG PO SCH ×3 (05:13→21:05)
[2017-11-11] MEDS: HumuLIN R SUBCUT PRN ×4 (05:44→21:05)
[2017-11-11] MEDS: ULTRAM PO PRN (06:01)
--- NOTE | 2017-11-11 06:01 | RAD ---
Examination: Portable AP chest History: Pneumonia Comparison reference 11/10/2017 Findings: Persistent mild right upper lobe infiltrate with suspicious appearance for developing left perihilar infiltrate as well. Heart size unchanged. No developing pleural fluid or complicating pneum othorax. Impression: Small areas of bilateral infiltrate with distribution as described. Findings are consiste nt with pneumonia. Reported By:
[2017-11-11 06:24] LABS: BASOPHILS % (AUTO) 0.4 % (0.2-1.0); EOSINOPHILS # (AUTO) 0.1 x10^3/uL (0.0-0.2); EOSINOPHILS % (AUTO) 2.1 % (0.9-2.9); HEMATOCRIT 31.4 % (42.0-54.0); HEMOGLOBIN 11.1 g/dL (13.5-18.0); LYMPHOCYTES # (AUTO) 0.7 X10^3/uL (1.3-2.9); LYMPHOCYTES % (AUTO) 13.7 % (21.0-51.0); MEAN CORPUSCULAR HEMOGLOBIN 33.7 pg (27.0-34.0); MEAN CORPUSCULAR HGB CONC 35.2 g/dL (33.0-35.0); MEAN CORPUSCULAR VOLUME 95.6 fL (80.0-100.0); MEAN PLATELET VOLUME 7.7 fL (7.4-11.0); MONOCYTES # (AUTO) 0.7 x10^3/uL (0.3-0.8); MONOCYTES % (AUTO) 14.3 % (0.0-13.0); NEUTROPHILS # (AUTO) 3.4 x10^3/uL (2.2-4.8); NEUTROPHILS % (AUTO) 69.5 % (42.0-75.0); PLATELET COUNT 61 X10^3/uL (150.0-450.0); RED BLOOD COUNT 3.29 X10^6/uL (4.7-6.0); RED CELL DISTRIBUTION WIDTH 15.2 % (11.6-16.5); WHITE BLOOD COUNT 4.9 X10^3/uL (3.6-10.0)
[2017-11-11 07:05] LABS: ALBUMIN 2.2 g/dL (3.4-5.0); CALCIUM 8.3 mg/dL (8.5-10.1); CARBON DIOXIDE 26.9 mmol/L (21-32); COR CA(FOR HYPOALB) 9.7 mg/dL (8.5-10.1); CREATININE 1.73 mg/dL (0.70-1.30); TOTAL PROTEIN 6.8 g/dL (6.4-8.2)
[2017-11-11] MEDS: FLONASE NASAL SPRAY ENOSTRIL SCH (08:00)
[2017-11-11] MEDS: CHRONULAC PO SCH ×2 (08:16→21:05)
[2017-11-11] MEDS: ALDACTONE TAB 25 MG PO SCH (08:16)
[2017-11-11] MEDS: PriLOSEC PO SCH (08:16)
[2017-11-11] MEDS: COREG TAB 6.25 MG PO SCH ×2 (08:17→21:05)
[2017-11-11] MEDS: LASIX PO SCH (08:17)
[2017-11-11] MEDS: MICRO K EXTEN CAP 10 MEQ PO SCH (08:17)
--- NOTE | 2017-11-11 13:02 | PCM.PROG ---
Progress Note - Progress Note for Day of Date: 11/11/17 - Subjective Subjective: 57 WM ER ADMISSION WITH PNEUMONIA AND LIVER FAILURE WITH ELEVATED AMMONIA LEVELS, FLUID RETENTION AND INCREASE PO. PT IS CURRENTLY ON PNEUMONIA PROTOCOL, IMPROVING LABORED RESP.PT DENIES PAIN THIS AM. IMPROVING BILIRUBIN, AMMONIA 41 THIS AM. INCREASED LACTULOSE, TOLERATING WELL, CXR WITH CONTINUE PNEUMONIA. - Past Medical Family Social History Past Med/Fam/Surg Hx: No changes since H&P Allergies: Allergies acetaminophen [From Lortab] Allergy (Verified 09/04/17 20:23) aspirin Allergy (Verified 09/04/17 20:23) hydrocodone [From Lortab] Allergy (Verified 09/04/17 20:23) morphine Allergy (Verified 09/04/17 20:23) - Review of Systems ROS: No change since H&P - Vital Signs and I&O's Vital Signs: Temperature 100 F Pulse Rate [Apical] 91 Pulse Rate 86 Respiratory Rate 16 Blood Pressure [Right Arm] 147/67 Blood Pressure 153/70 O2 Sat by Pulse Oximetry 96 Intake and Output: Intake & Output 11/09/17 11/10/17 11/11/17 11/12/17 11:59 11:59 11:59 11:59 Intake Total 2160 / 2160 1822 / 1822 2870 / 2870 Output Total 900 / 900 500 / 500 1510 / 1510 Balance 1260 / 1260 1322 / 1322 1360 / 1360 - Physical Exam Oriented: Normal Eyes: Other (JAUNDICE TO SCLERA) Ear: Normal Nose: Normal Throat: Dry Respiratory: Diminished, Rhonchi Cardiovascular: Normal, Murmur : Normal Tenderness: RUQ, LUQ, Epigastric, Mild Skin: Other (DIFFUSE JAUNDICE) Psychiatric: Anxiety Affect: Anxious Speech Pattern: Clear, Appropriate - Laboratory and Diagnostics Result Diagrams: 11/11/17 05:55 11/11/17 05:55 Labs: 11/08/17 09:20 Blood Blood Culture - Preliminary 11/08/17 09:00 Blood Blood Culture - Preliminary 11/08/17 09:38 Sputum - Expectorated Sputum Sputum Culture - Final 11/08/17 09:38 Sputum - Expectorated Sputum - Final Laboratory WBC 4.9 X10^3/uL (3.6-10.0) 11/11/17 05:55 RBC 3.29 X10^6/uL (4.7-6.0) L 11/11/17 05:55 Hgb 11.1 g/dL (13.5-18.0) L 11/11/17 05:55 Hct 31.4 % (42.0-54.0) L 11/11/17 05:55 MCV 95.6 fL (80.0-100.0) 11/11/17 05:55 MCH 33.7 pg (27.0-34.0) 11/11/17 05:55 MCHC 35.2 g/dL (33.0-35.0) H 11/11/17 05:55 RDW 15.2 % (11.6-16.5) 11/11/17 05:55 Plt Count 61 X10^3/uL (150.0-450.0) L 11/11/17 05:55 MPV 7.7 fL (7.4-11.0) 11/11/17 05:55 Neut % (Auto) 69.5 % (42.0-75.0) 11/11/17 05:55 Lymph % (Auto) 13.7 % (21.0-51.0) L 11/11/17 05:55 [place] % (Auto) 14.3 % (0.0-13.0) H 11/11/17 05:55 Eos % (Auto) 2.1 % (0.9-2.9) 11/11/17 05:55 Baso % (Auto) 0.4 % (0.2-1.0) 11/11/17 05:55 Neut # (Auto) 3.4 x10^3/uL (2.2-4.8) 11/11/17 05:55 Lymph # (Auto) 0.7 X10^3/uL (1.3-2.9) L 11/11/17 05:55 [place] # (Auto) 0.7 x10^3/uL (0.3-0.8) 11/11/17 05:55 Eos # (Auto) 0.1 x10^3/uL (0.0-0.2) 11/11/17 05:55 Baso # (Auto) 0.0 X10^3/uL (0.0-0.1) 11/11/17 05:55 Absolute Nucleated RBC 0.1 /100WBC 11/11/17 05:55 Sample Site Right radial 11/10/17 06:03 ABG pH 7.380 (7.35-7.45) 11/10/17 06:03 ABG pCO2 44.0 mmHg (35.0-45.0) 11/10/17 06:03 ABG pO2 52.0 mmHg (80.0-100.0) L 11/10/17 06:03 ABG HCO3 26.0 mmol/L (22-26) 11/10/17 06:03 ABG O2 Saturation 86.0 % (90-100) L 11/10/17 06:03 ABG Base Excess 0.6 mmol/L (-2.0-2.0) 11/10/17 06:03 Sanjeev Test Pos 11/10/17 06:03 A-a Gradient 43.0 mmHg 11/10/17 06:03 FiO2 21.000 11/10/17 06:03 Blood Gas Comments [place] well jts 11/10/17 06:03 Sodium 137 mmol/L (136-145) 11/11/17 05:55 Corrected Sodium 139 mmol/L (136-145) 11/11/17 05:55 Potassium 5.1 mmol/L (3.5-5.1) 11/11/17 05:55 Chloride 106 mmol/L (98-107) 11/11/17 05:55 Carbon Dioxide 26.9 mmol/L (21-32) 11/11/17 05:55 BUN 25 mg/dL (7-18) H 11/11/17 05:55 Creatinine 1.73 mg/dL (0.70-1.30) H 11/11/17 05:55 Est GFR (MDRD) Af Amer 53 (>60) L 11/11/17 05:55 Est GFR (MDRD) Non-Af 43 (>60) L 11/11/17 05:55 Glucose 186 mg/dL (65-99) H 11/11/17 05:55 POC Glucose (mg/dL) 186 mg/dL (65-99) H 11/08/17 05:21 Calcium 8.3 mg/dL (8.5-10.1) L 11/11/17 05:55 Corrected Calcium 9.7 mg/dL (8.5-10.1) 11/11/17 05:55 Total Bilirubin 1.60 mg/dL (0.2-1.0) H 11/11/17 05:55 AST 32 Units/L (15-37) 11/11/17 05:55 ALT 19 Units/L (12-78) 11/11/17 05:55 Alkaline Phosphatase 89 Units/L (46-116) 11/11/17 05:55 Ammonia 41 umol/L (11-32) H 11/11/17 05:55 Creatine Kinase 174 Units/L (39-308) 11/07/17 06:55 CK-MB (CK-2) < 1.0 ng/mL (0-4.0) 11/07/17 06:55 CK/CKMB % Calc 0.6 % (<4) 11/07/17 06:55 Troponin I 0.02 ng/mL (0-1.5) 11/07/17 06:55 Total Protein 6.8 g/dL (6.4-8.2) 11/11/17 05:55 Albumin 2.2 g/dL (3.4-5.0) L 11/11/17 05:55 Globulin 4.6 g/dL (2.5-4.5) H 11/11/17 05:55 Albumin/Globulin Ratio 0.5 Ratio (1.1-2.1) L 11/11/17 05:55 Amylase 50 Units/L (25-115) 11/07/17 06:55 Lipase 239 Units/L (73-393) 11/07/17 06:55 Specimen Type Random urine 11/07/17 07:[address] (YELLOW) 11/07/17 07:53 Urine Appearance Clear (CLEAR) 11/07/17 07:53 Urine pH 5.0 (5.0 - 8.0) 11/07/17 07:53 Ur Specific [place] 1.020 (1.000-1.030) 11/07/17 07:53 Urine Protein 2+ (NEGATIVE) 11/07/17 07:53 Urine Glucose (UA) 1+ (NEGATIVE) 11/07/17 07:53 Urine Ketones 1+ (NEGATIVE) 11/07/17 07:53 Urine Occult Blood 4+ (NEGATIVE) 11/07/17 07:53 Urine Nitrite Negative (NEGATIVE) 11/07/17 07:53 Urine Bilirubin 1+ (NEGATIVE) 11/07/17 07:53 Urine Urobilinogen 3+ (NORMAL) 11/07/17 07:53 Ur Leukocyte Esterase 1+ (NEGATIVE) 11/07/17 07:53 Urine RBC 0-2 /HPF (NONE SEEN) 11/07/17 07:53 Urine WBC 0-2 /HPF (NONE SEEN) 11/07/17 07:53 Ur Squamous Epith Cells Rare /HPF (NEGATIVE) 11/07/17 07:53 Urine Bacteria Trace /HPF (NEGATIVE) 11/07/17 07:53 Hyaline Casts Rare /LPF (NEGATIVE) 11/07/17 07:53 Ur Culture Indicated? No/not indicated 11/07/17 07:53 - Plan (1) Respiratory distress Status: Acute Plan: CONTINUE RESP THERAPY, PULMONARY TOILETING. PNEUMONIA PATHWAY, AM CXR, VERIFY HOME MEDS. DIURETICS, SPUTUM SPECIMEN. SUPPLEMENTAL O2. I & OS, BLOOD SUGAR CONTROL, CARDIAC AND BP MONIORING (2) Hypertension Status: Acute (3) Diabetes Status: Acute Plan: SSI (4) Advanced cirrhosis of liver Status: Acute (5) Portal venous hypertension Status: Acute (6) Cholelithiasis Status: Acute Qualifiers: Cholelithiasis location: gallbladder Cholecystitis presence: without cholecystitis Biliary obstruction: without biliary obstruction Qualified Code(s): K80.20 - Calculus of gallbladder without cholecystitis without obstruction (7) Cirrhosis of liver Status: Acute Qualifiers: Hepatic cirrhosis type: unspecified hepatic cirrhosis Ascites presence: without ascites Qualified Code(s): K74.60 - Unspecified cirrhosis of liver (8) Increased ammonia level Status: Acute Plan: INCREASE LACTULOSE BID, REPEAT AM AMMONIA (9) Altered mental status Status: Acute Qualifiers: Altered mental status type: unspecified Qualified Code(s): R41.82 - Altered mental status, unspecified (10) Pneumonia Status: Acute Plan: PNEUMONIA PROTOCOL, SUPPLEMENTAL O2. RESP THERAPY, IV ATBX
[2017-11-11] MEDS: ROBITUSSIN DM PO SCH ×3 (15:00→21:04)
[2017-11-11] MEDS: SNACK - Diabetic Appropriate PO SCH (21:04)
[2017-11-12] MEDS: DUONEB 0.5 MG/3 MG NEB SCH ×6 (01:10→21:53)
[2017-11-12] MEDS: ATIVAN TAB 0.5 MG PO SCH ×3 (05:25→21:19)
[2017-11-12] MEDS: NEURONTIN CAP 300 MG PO SCH ×3 (05:26→21:20)
[2017-11-12] MEDS: HumuLIN R SUBCUT PRN ×4 (05:31→21:17)
[2017-11-12] MEDS: MAGIC MOUTHWASH MT PRN ×2 (06:38→11:06)
[2017-11-12 06:46] LABS: BASOPHILS % (AUTO) 0.7 % (0.2-1.0); EOSINOPHILS # (AUTO) 0.1 x10^3/uL (0.0-0.2); EOSINOPHILS % (AUTO) 2.6 % (0.9-2.9); HEMATOCRIT 31.6 % (42.0-54.0); HEMOGLOBIN 10.9 g/dL (13.5-18.0); LYMPHOCYTES # (AUTO) 0.7 X10^3/uL (1.3-2.9); LYMPHOCYTES % (AUTO) 14.4 % (21.0-51.0); MEAN CORPUSCULAR HEMOGLOBIN 33.3 pg (27.0-34.0); MEAN CORPUSCULAR HGB CONC 34.5 g/dL (33.0-35.0); MEAN CORPUSCULAR VOLUME 96.4 fL (80.0-100.0); MEAN PLATELET VOLUME 8.1 fL (7.4-11.0); MONOCYTES # (AUTO) 0.6 x10^3/uL (0.3-0.8); MONOCYTES % (AUTO) 12.5 % (0.0-13.0); NEUTROPHILS # (AUTO) 3.2 x10^3/uL (2.2-4.8); NEUTROPHILS % (AUTO) 69.8 % (42.0-75.0); PLATELET COUNT 70 X10^3/uL (150.0-450.0); RED BLOOD COUNT 3.28 X10^6/uL (4.7-6.0); WHITE BLOOD COUNT 4.5 X10^3/uL (3.6-10.0)
[2017-11-12 07:12] LABS: ALBUMIN 2.2 g/dL (3.4-5.0); CALCIUM 8.4 mg/dL (8.5-10.1); CARBON DIOXIDE 28.4 mmol/L (21-32); COR CA(FOR HYPOALB) 9.8 mg/dL (8.5-10.1); CREATININE 1.63 mg/dL (0.70-1.30); TOTAL PROTEIN 6.9 g/dL (6.4-8.2)
[2017-11-12] MEDS: PriLOSEC PO SCH (08:20)
[2017-11-12] MEDS: MICRO K EXTEN CAP 10 MEQ PO SCH (08:20)
[2017-11-12] MEDS: LASIX PO SCH (08:20)
[2017-11-12] MEDS: COREG TAB 6.25 MG PO SCH ×2 (08:20→21:19)
[2017-11-12] MEDS: CHRONULAC PO SCH ×2 (08:21→21:19)
[2017-11-12] MEDS: ROBITUSSIN DM PO SCH ×4 (08:21→21:18)
[2017-11-12] MEDS: ALDACTONE TAB 25 MG PO SCH (08:22)
[2017-11-12] MEDS: FLONASE NASAL SPRAY ENOSTRIL SCH (08:25)
[2017-11-12] MEDS: LEVAQUIN PREMIX IV 750 MG 750 MG/150 ML BAG IV SCH ×2 (08:26→09:20)
[2017-11-12] MEDS: NS 1000 ML 1,000 ML IV SCH ×2 (09:20→22:07)
[2017-11-12] MEDS: SNACK - Diabetic Appropriate PO SCH (21:18)
[2017-11-12] MEDS: ULTRAM PO PRN (21:20)
[2017-11-13] MEDS: DUONEB 0.5 MG/3 MG NEB SCH ×6 (01:17→20:37)
[2017-11-13 04:29] LABS: BASOPHILS % (AUTO) 0.7 % (0.2-1.0); EOSINOPHILS # (AUTO) 0.1 x10^3/uL (0.0-0.2); EOSINOPHILS % (AUTO) 1.9 % (0.9-2.9); HEMATOCRIT 30.2 % (42.0-54.0); HEMOGLOBIN 10.5 g/dL (13.5-18.0); LYMPHOCYTES # (AUTO) 0.6 X10^3/uL (1.3-2.9); MEAN CORPUSCULAR HEMOGLOBIN 33.4 pg (27.0-34.0); MEAN CORPUSCULAR HGB CONC 34.9 g/dL (33.0-35.0); MEAN CORPUSCULAR VOLUME 95.7 fL (80.0-100.0); MEAN PLATELET VOLUME 7.7 fL (7.4-11.0); MONOCYTES # (AUTO) 0.4 x10^3/uL (0.3-0.8); MONOCYTES % (AUTO) 10.7 % (0.0-13.0); NEUTROPHILS # (AUTO) 2.8 x10^3/uL (2.2-4.8); NEUTROPHILS % (AUTO) 70.7 % (42.0-75.0); PLATELET COUNT 72 X10^3/uL (150.0-450.0); RED BLOOD COUNT 3.16 X10^6/uL (4.7-6.0); RED CELL DISTRIBUTION WIDTH 14.8 % (11.6-16.5); WHITE BLOOD COUNT 3.9 X10^3/uL (3.6-10.0)
[2017-11-13 04:43] LABS: ALANINE AMINOTRANSFERASE 21 Units/L (12-78); ALKALINE PHOSPHATASE 86 Units/L (46-116); ASPARTATE AMINO TRANSFERASE 28 Units/L (15-37); BLOOD UREA NITROGEN 20 mg/dL (7-18); CALCIUM 8.5 mg/dL (8.5-10.1); CARBON DIOXIDE 27.8 mmol/L (21-32); CHLORIDE 105 mmol/L (98-107); COR CA(FOR HYPOALB) 10.1 mg/dL (8.5-10.1); COR NA(FOR HYPERGLY) 139 mmol/L (136-145); CREATININE 1.39 mg/dL (0.70-1.30); SODIUM 137 mmol/L (136-145); TOTAL PROTEIN 6.6 g/dL (6.4-8.2); eGFR NON BLACK RACES 56 (>60)
[2017-11-13] MEDS: HumuLIN R SUBCUT PRN ×4 (05:47→20:45)
[2017-11-13] MEDS: ATIVAN TAB 0.5 MG PO SCH ×3 (05:47→21:19)
[2017-11-13] MEDS: NEURONTIN CAP 300 MG PO SCH ×3 (05:48→21:19)
[2017-11-13 06:09] LABS: AMMONIA 50 umol/L (11-32)
[2017-11-13] MEDS: COREG TAB 6.25 MG PO SCH ×2 (08:28→20:45)
[2017-11-13] MEDS: MICRO K EXTEN CAP 10 MEQ PO SCH (08:28)
[2017-11-13] MEDS: ALDACTONE TAB 25 MG PO SCH (08:28)
[2017-11-13] MEDS: PriLOSEC PO SCH (08:28)
[2017-11-13] MEDS: LASIX PO SCH (08:28)
[2017-11-13] MEDS: ROBITUSSIN DM PO SCH ×4 (08:29→20:43)
[2017-11-13] MEDS: FLONASE NASAL SPRAY ENOSTRIL SCH (08:29)
[2017-11-13] MEDS: CHRONULAC PO SCH ×2 (08:29→20:43)
[2017-11-13] MEDS: NS 1000 ML 1,000 ML IV SCH ×2 (08:31→11:06)
[2017-11-13 09:09] LABS: ABG BASE EXCESS 3.8 mmol/L (-2.0-2.0); ABG HCO3 29.2 mmol/L (22-26)
[2017-11-13 09:10] LABS: ABG ALLEN TEST POS
[2017-11-13] MEDS: MUCOMYST 20% 200 MG/ML NEB SCH ×4 (11:13→20:37)
[2017-11-13] MEDS: ROCEPHIN 1 GRAM IV PREMIX 1 G/50 ML IV.SOLN. IV SCH (11:30)
[2017-11-13] MEDS: SNACK - Diabetic Appropriate PO SCH (20:43)
[2017-11-13] MEDS: ULTRAM PO PRN (20:44)
[2017-11-14] MEDS: DUONEB 0.5 MG/3 MG NEB SCH ×6 (01:11→20:55)
[2017-11-14] MEDS: NS 1000 ML 1,000 ML IV SCH ×2 (04:01→21:28)
[2017-11-14 05:18] LABS: BASOPHILS % (AUTO) 0.8 % (0.2-1.0); EOSINOPHILS # (AUTO) 0.1 x10^3/uL (0.0-0.2); EOSINOPHILS % (AUTO) 2.5 % (0.9-2.9); HEMATOCRIT 32.2 % (42.0-54.0); HEMOGLOBIN 11.2 g/dL (13.5-18.0); LYMPHOCYTES # (AUTO) 0.6 X10^3/uL (1.3-2.9); MEAN CORPUSCULAR HEMOGLOBIN 33.5 pg (27.0-34.0); MEAN CORPUSCULAR VOLUME 95.8 fL (80.0-100.0); MONOCYTES # (AUTO) 0.3 x10^3/uL (0.3-0.8); MONOCYTES % (AUTO) 9.7 % (0.0-13.0); NEUTROPHILS # (AUTO) 2.5 x10^3/uL (2.2-4.8); PLATELET COUNT 82 X10^3/uL (150.0-450.0); RED BLOOD COUNT 3.36 X10^6/uL (4.7-6.0); RED CELL DISTRIBUTION WIDTH 14.7 % (11.6-16.5); WHITE BLOOD COUNT 3.5 X10^3/uL (3.6-10.0)
[2017-11-14 05:43] LABS: ALANINE AMINOTRANSFERASE 16 Units/L (12-78); ALBUMIN 2.1 g/dL (3.4-5.0); ALKALINE PHOSPHATASE 87 Units/L (46-116); ASPARTATE AMINO TRANSFERASE 30 Units/L (15-37); BLOOD UREA NITROGEN 24 mg/dL (7-18); CALCIUM 8.7 mg/dL (8.5-10.1); CARBON DIOXIDE 29.1 mmol/L (21-32); CHLORIDE 104 mmol/L (98-107); COR CA(FOR HYPOALB) 10.2 mg/dL (8.5-10.1); COR NA(FOR HYPERGLY) 141 mmol/L (136-145); CREATININE 1.44 mg/dL (0.70-1.30); SODIUM 138 mmol/L (136-145); TOTAL PROTEIN 6.7 g/dL (6.4-8.2); eGFR NON BLACK RACES 54 (>60)
[2017-11-14] MEDS: NEURONTIN CAP 300 MG PO SCH ×3 (06:04→21:29)
[2017-11-14] MEDS: ATIVAN TAB 0.5 MG PO SCH ×3 (06:04→21:29)
[2017-11-14] MEDS: HumuLIN R SUBCUT PRN ×4 (06:05→21:30)
[2017-11-14] MEDS: ROCEPHIN 1 GRAM IV PREMIX 1 G/50 ML IV.SOLN. IV SCH (08:33)
[2017-11-14] MEDS: ROBITUSSIN DM PO SCH ×4 (08:34→21:28)
[2017-11-14] MEDS: CHRONULAC PO SCH ×2 (08:34→21:28)
[2017-11-14] MEDS: ALDACTONE TAB 25 MG PO SCH (08:34)
[2017-11-14] MEDS: COREG TAB 6.25 MG PO SCH ×2 (08:35→21:28)
[2017-11-14] MEDS: LASIX PO SCH (08:35)
[2017-11-14] MEDS: MICRO K EXTEN CAP 10 MEQ PO SCH (08:35)
[2017-11-14] MEDS: PriLOSEC PO SCH (08:35)
[2017-11-14] MEDS: FLONASE NASAL SPRAY ENOSTRIL SCH (08:35)
--- NOTE | 2017-11-14 08:36 | RAD ---
HISTORY: Pneumonia Study: AP portable chest Comparison: 11/11/2017 Findings: Slight interval increase in the patchy density in the right lung is noted. Slight clearing of the pa tchy infiltrate in the left lung is noted. The heart size is normal. No acute bony abnormalities ar e identified. IMPRESSION: 1. Slight interval increase in the patchy infiltrate the right lung with slight interval clearing of the patchy infiltrate in the left lung. These findings are consistent with pneumonia. Reported By:
[2017-11-14] MEDS: MUCOMYST 20% 200 MG/ML NEB SCH ×4 (09:00→20:55)
[2017-11-14] MEDS: LEVAQUIN PREMIX IV 750 MG 750 MG/150 ML BAG IV SCH (11:45)
[2017-11-14] MEDS: SNACK - Diabetic Appropriate PO SCH (21:27)
[2017-11-15] MEDS: DUONEB 0.5 MG/3 MG NEB SCH ×4 (01:15→12:43)
[2017-11-15] MEDS: NS 1000 ML 1,000 ML IV SCH (01:47)
[2017-11-15 05:25] LABS: BASOPHILS % (AUTO) 0.8 % (0.2-1.0); EOSINOPHILS # (AUTO) 0.1 x10^3/uL (0.0-0.2); EOSINOPHILS % (AUTO) 2.4 % (0.9-2.9); HEMATOCRIT 31.8 % (42.0-54.0); HEMOGLOBIN 11.1 g/dL (13.5-18.0); LYMPHOCYTES # (AUTO) 0.6 X10^3/uL (1.3-2.9); MEAN CORPUSCULAR HEMOGLOBIN 33.2 pg (27.0-34.0); MEAN CORPUSCULAR HGB CONC 34.7 g/dL (33.0-35.0); MEAN CORPUSCULAR VOLUME 95.6 fL (80.0-100.0); MEAN PLATELET VOLUME 7.6 fL (7.4-11.0); MONOCYTES # (AUTO) 0.3 x10^3/uL (0.3-0.8); MONOCYTES % (AUTO) 8.2 % (0.0-13.0); NEUTROPHILS # (AUTO) 2.5 x10^3/uL (2.2-4.8); NEUTROPHILS % (AUTO) 71.6 % (42.0-75.0); PLATELET COUNT 96 X10^3/uL (150.0-450.0); RED BLOOD COUNT 3.33 X10^6/uL (4.7-6.0); RED CELL DISTRIBUTION WIDTH 14.6 % (11.6-16.5); WHITE BLOOD COUNT 3.5 X10^3/uL (3.6-10.0)
[2017-11-15 05:35] LABS: ALBUMIN 2.1 g/dL (3.4-5.0); CALCIUM 8.8 mg/dL (8.5-10.1); COR CA(FOR HYPOALB) 10.3 mg/dL (8.5-10.1); CREATININE 1.57 mg/dL (0.70-1.30)
[2017-11-15] MEDS: ATIVAN TAB 0.5 MG PO SCH (05:55)
[2017-11-15] MEDS: NEURONTIN CAP 300 MG PO SCH (05:55)
[2017-11-15] MEDS: HumuLIN R SUBCUT PRN (05:56)
[2017-11-15] MEDS: ROCEPHIN 1 GRAM IV PREMIX 1 G/50 ML IV.SOLN. IV SCH (08:26)
[2017-11-15] MEDS: CHRONULAC PO SCH (08:28)
[2017-11-15] MEDS: ALDACTONE TAB 25 MG PO SCH (08:28)
[2017-11-15] MEDS: ROBITUSSIN DM PO SCH (08:29)
[2017-11-15] MEDS: PriLOSEC PO SCH (08:30)
[2017-11-15] MEDS: LASIX PO SCH (08:30)
[2017-11-15] MEDS: MICRO K EXTEN CAP 10 MEQ PO SCH (08:31)
[2017-11-15] MEDS: COREG TAB 6.25 MG PO SCH (08:32)
[2017-11-15] MEDS: FLONASE NASAL SPRAY ENOSTRIL SCH (08:33)
[2017-11-15] MEDS: MUCOMYST 20% 200 MG/ML NEB SCH ×2 (09:29→12:43)
[2017-11-15 12:20] VITALS: BP 119/72
== END 2017-11-15 14:40 | disposition home or self-care (01) | DRG 194 ==
LOC: ER 05:48 → ICU 14:00 → INTOOBSV 14:00 → ICU 14:19 → MED/SURG 11-08 12:56 → ICU 11-08 13:05 → UNDODISOB 11-08 15:25
PROVIDERS: ADMIT Internal Medicine; ATTEND Internal Medicine
DX: R51 Headache; R41.82 Altered mental status, unspecified; R11.2 Nausea with vomiting, unspecified; E11.65 Type 2 diabetes mellitus with hyperglycemia; R06.03 Acute respiratory distress; K74.69 Other cirrhosis of liver; I10 Essential (primary) hypertension; K76.6 Portal hypertension; R10.84 Generalized abdominal pain; G47.33 Obstructive sleep apnea (adult) (pediatric); K72.90 Hepatic failure, unspecified without coma; K80.20 Calculus of gallbladder without cholecystitis without obstruction; R07.89 Other chest pain; J16.8 Pneumonia due to other specified infectious organisms; J45.998 Other asthma; H65.00 Acute serous otitis media, unspecified ear; R06.02 Shortness of breath
CPT/HCPCS: 36415; 36600; 71010; 71045; 74176; 80053; 81001; 82140; 82150; 82550; 82553; 82803; 83690; 84484; 85025; 87040; 87070; 87205; 93005; 93010; 94640; 94669; 94760; 96365; 96367; 96374; 96375; 97110; 97112; 97116; 97163; 97166; 97530; 97535; 99283; 99284; A4216; A4222; G0378; J0696; J1170; J1335; J1815; J1885; J1956; J2405; J2550; J7030; J7050; J7608; J7613; J7620

== ENCOUNTER 2020-05-05 18:05 | Observation (INO) ==
[2020-05-05 18:55] VITALS: BMI 37.2
--- NOTE | 2020-05-05 20:49 | DR.GENAD ---
HPI Time Seen Time Seen by Provider: 05/05/20 18:51 HPI Comment HPI Comment: Worsening belly and feet/leg swelling for the past four days; unable to breath both with and without exertion; has HERBERT cirrhosis and is on transplant list x 3 years at [place]; denies prior h/o paracentesis; no cp, palpitations, cough, smith, sob, fever, chills, n/v/d. ROS Review of Systems Constitutional: Malaise and Weakness Eyes: No Symptoms Reported ENTM: No Symptoms Reported Genitourinary: No Symptoms Reported Neurological: No Symptoms Reported Musculoskeletal: No Symptoms Reported Integumentary: No Symptoms Reported Hematologic/Lymphatic: No Symptoms Reported Endocrine: No Symptoms Reported PE Vital Signs Vitals: Temperature 98.3 F Pulse Rate 81 Respiratory Rate 20 Blood Pressure [Left Arm] 139/64 Blood Pressure [Right Arm] 119/72 Blood Pressure 147/81 O2 Sat by Pulse Oximetry 98 General Limitations: No Limitations General Appearance: Alert and In No Apparent Distress Head Head Exam: Normal Inspection Eyes Eye exam: Normal Appearance ENT ENT Exam: Normal Exam External Ear Exam: Normal External Inspection TM/Canal Exam: Bilateral: Normal Nose Exam: Normal Nose Exam Mouth Exam: Normal Inspection Throat Exam: Normal Inspection Neck Neck Exam: Normal Inspection Chest Chest Inspection: Normal Inspection Respiratory Respiratory Exam: Normal Lung Sounds Bilat Respiratory Exam: Bilateral: Clear to Auscultation Cardiovascular Cardiovascular Exam: Regular Rate and Normal Rhythm Abdominal Exam Abdominal Exam: Distention and Ascites Extremities Extremities Exam: Edema (4+ bilateral feet to lower thirds ble) Back Back Exam: Normal Inspection Neurologic Neurological Exam: Alert and Oriented X3 Psychiatric Psychiatric Exam: Normal Affect and Normal Mood Skin Skin Exam: Warm, Dry, Intact and Normal Color MDM Differential Diagnosis Differential Diagnosis: ascities, peritonitis COURSE Reevaluation 1st: Unchanged ROR Labs Reviewed Laboratory Results Reviewed?: Yes Result Diagrams: 05/05/20 20:28 05/05/20 20:58 Laboratory: WBC 6.0 X10^3/uL (3.6-10.0) 05/05/20 20:28 RBC 3.23 X10^6/uL (4.7-6.0) L 05/05/20 20:28 Hgb 11.1 g/dL (13.5-18.0) L 05/05/20 20:28 Hct 32.5 % (42.0-54.0) L 12/17/20 20: MCV 100.7 fL (80.0-100.0) H 05/05/20 20: MCH 34.4 pg (27.0-34.0) H 05/05/20 20: MCHC 34.2 g/dL (33.0-35.0) 05/05/20 20: RDW 17.0 % (11.6-16.5) H 05/05/20: Plt Count 59 X10^3/uL (150.0-450.0) L 05/05/20: MPV 6.8 fL (7.4-11.0) L 05/05/20: Neut % (Auto) 72.1 % (42.0-75.0) 05/05/20: Lymph % (Auto) 10.3 % (21.0-51.0) L 05/05/20: [place] % (Auto) 11.3 % (0.0-13.0) 05/05/20: Eos % (Auto) 5.9 % (0.9-2.9) H 05/05/20 20: Baso % (Auto) 0.4 % (0.2-1.0) 05/05/20 20: Neut # (Auto) 4.3 x10^3/uL (2.2-4.8) 05/05/20 20: Lymph # (Auto) 0.6 X10^3/uL (1.3-2.9) L 05/05/20 20: [place] # (Auto) 0.7 x10^3/uL (0.3-0.8) 05/05/20 20: Eos # (Auto) 0.4 x10^3/uL (0.0-0.2) H 05/05/20 20: Baso # (Auto) 0.0 X10^3/uL (0.0-0.1) 05/05/20 20: Absolute Nucleated RBC 0.0 /100WBC 05/05/20 20:28 Sodium 140 mmol/L (136-145) 05/05/20 20:58 Corrected Sodium 143 mmol/L (136-145) 05/05/20 20:58 Potassium 5.3 mmol/L (3.5-5.1) H 05/05/20 20:58 Chloride 108 mmol/L (98-107) H 05/05/20 20:58 Carbon Dioxide 25.0 mmol/L (21-32) 05/05/20 20:58 BUN 40 mg/dL (7-18) H 05/05/20 20:58 Creatinine 2.18 mg/dL (0.70-1.30) H 05/05/20 20:58 Est GFR (MDRD) Af Amer 40 (>60) L 05/05/20 20:58 Est GFR (MDRD) Non-Af 33 (>60) L 05/05/20 20:58 Glucose 225 mg/dL (65-99) H 05/05/20 20:58 Calcium 9.2 mg/dL (8.5-10.1) 05/05/20 20:58 Corrected Calcium 10.3 mg/dL (8.5-10.1) H 05/05/20 20:58 Total Bilirubin 2.30 mg/dL (0.2-1.0) H 05/05/20 20:58 AST 45 Units/L (15-37) H 05/05/20 20:58 ALT 42 Units/L (12-78) 05/05/20 20:58 Alkaline Phosphatase 89 Units/L (46-116) 05/05/20 20:58 Creatine Kinase 72 Units/L (39-308) 05/05/20 20:58 CK-MB (CK-2) < 1.0 ng/mL (0-4.0) 05/05/20 20:58 CK/CKMB % Calc 1.4 % (<4) 05/05/20 20:58 Troponin I 0.05 ng/mL (0-1.5) 05/05/20 20:58 Total Protein 7.3 g/dL (6.4-8.2) 05/05/20 20:58 Albumin 2.6 g/dL (3.4-5.0) L 05/05/20 20:58 Globulin 4.7 g/dL (2.5-4.5) H 05/05/20 20:58 Albumin/Globulin Ratio 0.6 Ratio (1.1-2.1) L 05/05/20 20:58 XRAY XRAY Interpreted by: Radiologist X-ray Results: abd us: Partially imaged cirrhotic morphology of the liver with large volume ascites, most pronounced in the right upper quadrant. Opioid Opioid Risk Tool Total: 0 Total Score Risk Category: Low Risk Copyright: Addison GOODWIN predicting aberrant behaviors Diagnosis Discharge Problem: Advanced cirrhosis of liver, Acute hyperkalemia Abdominal ascites Qualifiers: Ascites type: other type Qualified Code(s): R18.8 - Other ascites Dyspnea Qualifiers: Dyspnea type: shortness of breath Qualified Code(s): R06.02 - Shortness of breath Instructions Instructions: Ascites Forms: Precautions for COVID19 Patient Portal Social Distancing
[2020-05-05 21:07] LABS: BASOPHILS % (AUTO) 0.4 % (0.2-1.0); EOSINOPHILS # (AUTO) 0.4 x10^3/uL (0.0-0.2); EOSINOPHILS % (AUTO) 5.9 % (0.9-2.9); HEMATOCRIT 32.5 % (42.0-54.0); HEMOGLOBIN 11.1 g/dL (13.5-18.0); LYMPHOCYTES # (AUTO) 0.6 X10^3/uL (1.3-2.9); LYMPHOCYTES % (AUTO) 10.3 % (21.0-51.0); MEAN CORPUSCULAR HEMOGLOBIN 34.4 pg (27.0-34.0); MEAN CORPUSCULAR HGB CONC 34.2 g/dL (33.0-35.0); MEAN CORPUSCULAR VOLUME 100.7 fL (80.0-100.0); MEAN PLATELET VOLUME 6.8 fL (7.4-11.0); MONOCYTES # (AUTO) 0.7 x10^3/uL (0.3-0.8); MONOCYTES % (AUTO) 11.3 % (0.0-13.0); NEUTROPHILS # (AUTO) 4.3 x10^3/uL (2.2-4.8); NEUTROPHILS % (AUTO) 72.1 % (42.0-75.0); PLATELET COUNT 59 X10^3/uL (150.0-450.0); RED BLOOD COUNT 3.23 X10^6/uL (4.7-6.0)
[2020-05-05 21:24] LABS: BLOOD UREA NITROGEN 40 mg/dL (7-18); CALCIUM 9.2 mg/dL (8.5-10.1); CHLORIDE 108 mmol/L (98-107); COR NA(FOR HYPERGLY) 143 mmol/L (136-145); CREATININE 2.18 mg/dL (0.70-1.30); SODIUM 140 mmol/L (136-145); TROPONIN I 0.05 ng/mL (0-1.5); eGFR NON BLACK RACES 33 (>60)
[2020-05-05 21:28] LABS: ALANINE AMINOTRANSFERASE 42 Units/L (12-78); ALBUMIN 2.6 g/dL (3.4-5.0); ALKALINE PHOSPHATASE 89 Units/L (46-116); ASPARTATE AMINO TRANSFERASE 45 Units/L (15-37); CKMB % 1.4 % (<4); COR CA(FOR HYPOALB) 10.3 mg/dL (8.5-10.1); CREATINE KINASE 72 Units/L (39-308); CREATINE KINASE MB < 1.0 ng/mL (0-4.0); TOTAL PROTEIN 7.3 g/dL (6.4-8.2)
--- NOTE | 2020-05-05 21:36 | US ---
HISTORYabd distention, cirrhosis, ascitiesSTUDYLIMITED ABDOMEN/QUADRANTCOMPARISONNoneTECHNIQUEMultiple frausto scale and color flow Doppler images of the 4 abd ominal quadrants were obtained to evaluate for ascites.FINDINGSPartially imaged cirrhotic morphology of the liver with large volume ascites. Findings are most pronounced within the right upper quadrant. IMPRESSIONPartially imaged cirrhotic morphology of the liver with large volume ascites, most pronounc ed in the right upper quadrant.Electronically signed by: Raffy Shane (May 05, 2020 21:34:27)
--- NOTE | 2020-05-05 22:10 | RAD ---
HISTORYLower extremity swelling.STUDYCHEST, 1 [id number]/2020FINDINGSThe cardiac silhouette is upper normal, though pulmonary vasculature is not congested. Low lung volumes. There are increased airspace opacities within the right perihilar and basilar regions. Left lung is essentially clear. No pleural effusion or pneumothorax.IMPRESSIONLow lung volumes with increased right basilar and perihilar airspace opacities, which may reflect atelectasis or pneumonia.Electronically signed by: Raffy Shane (May 05, 2020 22:08:45)
[2020-05-05] MEDS ORDERED: ALDACTONE TAB 25 MG ONE (23:50)
[2020-05-05] MEDS: ALDACTONE TAB 25 MG PO SCH (23:57)
[2020-05-06 06:56] LABS: BASOPHILS % (AUTO) 0.3 % (0.2-1.0); EOSINOPHILS # (AUTO) 0.2 x10^3/uL (0.0-0.2); EOSINOPHILS % (AUTO) 5.9 % (0.9-2.9); HEMATOCRIT 27.9 % (42.0-54.0); HEMOGLOBIN 9.6 g/dL (13.5-18.0); LYMPHOCYTES # (AUTO) 0.5 X10^3/uL (1.3-2.9); MEAN CORPUSCULAR HEMOGLOBIN 34.8 pg (27.0-34.0); MEAN CORPUSCULAR HGB CONC 34.3 g/dL (33.0-35.0); MEAN CORPUSCULAR VOLUME 101.6 fL (80.0-100.0); MEAN PLATELET VOLUME 7.8 fL (7.4-11.0); MONOCYTES # (AUTO) 0.3 x10^3/uL (0.3-0.8); NEUTROPHILS # (AUTO) 2.5 x10^3/uL (2.2-4.8); NEUTROPHILS % (AUTO) 71.8 % (42.0-75.0); PLATELET COUNT 42 X10^3/uL (150.0-450.0); RED BLOOD COUNT 2.75 X10^6/uL (4.7-6.0); RED CELL DISTRIBUTION WIDTH 16.9 % (11.6-16.5); WHITE BLOOD COUNT 3.5 X10^3/uL (3.6-10.0)
[2020-05-06 06:57] LABS: ALBUMIN 2.2 g/dL (3.4-5.0); CALCIUM 8.3 mg/dL (8.5-10.1); COR CA(FOR HYPOALB) 9.7 mg/dL (8.5-10.1); CREATININE 2.02 mg/dL (0.70-1.30); TOTAL PROTEIN 6.1 g/dL (6.4-8.2)
[2020-05-06 07:17] LABS: CARBON DIOXIDE 24.6 mmol/L (21-32)
[2020-05-06 07:32] LABS: PLATELET MORPHOLOGY COMMENT NORMAL (NORMAL)
[2020-05-06] MEDS: ALDACTONE TAB 25 MG PO SCH ×2 (08:22→09:14)
[2020-05-06] MEDS ORDERED: LASIX IVP SCH (09:00)
[2020-05-06 19:00] VITALS: BP 137/67
--- NOTE | 2020-05-06 21:31 | DR.SSS ---
SHORT STAY SUMMARY Past Medical History Past Medical History: Asthma, Cirrhosis, Diabetes, Headaches, Hypertension, Kidney Stones and Sleep Apnea Past Surgical History Surgical History: Cholecystectomy Allergies Allergies Allergy/AdvReac Type Severity Reaction Status Date / Time acetaminophen [From Lortab] Allergy Verified 12/28/19 14:05 aspirin Allergy Verified 12/28/19 14:05 Bleach (Sodium Hypochlorite) Allergy Verified 12/28/19 14:05 hydrocodone [From Lortab] Allergy Verified 12/28/19 14:05 morphine Allergy Verified 12/28/19 14:05 Medications Home Medications: acetaminophen [From Lortab] Allergy (Verified 12/28/19 14:05) aspirin Allergy (Verified 12/28/19 14:05) Bleach (Sodium Hypochlorite) Allergy (Verified 12/28/19 14:05) hydrocodone [From Lortab] Allergy (Verified 12/28/19 14:05) morphine Allergy (Verified 12/28/19 14:05) CONTINUE taking the following medications montelukast 10 mg PO HS 05/06/20 [History] ondansetron HCl [Zofran] 4 mg PO Q8H PRN 05/06/20 [History] Family History Family Medical History: Diabetes Mellitus, Cancer, [place], Heart Failure, Sudden Cardiac and Hypertension Social History Does any household member use tobacco: Yes Alcohol Use: None Drug Use: None Physical Exam Vital Signs: Last Vital Signs Temp 98.6 F 05/06/20 16:00 Pulse 86 05/06/20 16:00 Resp 20 05/06/20 16:00 BP 137/67 05/06/20 16:00 Pulse Ox 97 05/06/20 16:00 Labs Labs: Laboratory Last Values WBC 3.5 X10^3/uL (3.6-10.0) L 05/06/20 05:12 RBC 2.75 X10^6/uL (4.7-6.0) L 05/06/20 05:12 Hgb 9.6 g/dL (13.5-18.0) L 05/06/20 05:12 Hct 27.9 % (42.0-54.0) L 05/06/20 05:12 MCV 101.6 fL (80.0-100.0) H 05/06/20 05:12 MCH 34.8 pg (27.0-34.0) H 05/06/20 05:12 MCHC 34.3 g/dL (33.0-35.0) 05/06/20 05:12 RDW 16.9 % (11.6-16.5) H 05/06/20 05:12 Plt Count 42 X10^3/uL (150.0-450.0) L 05/06/20 05:12 Plt Count Comment Decreased (ADEQUATE) 05/06/20 05:12 MPV 7.8 fL (7.4-11.0) 05/06/20 05:12 Neut % (Auto) 71.8 % (42.0-75.0) 05/06/20 05:12 Lymph % (Auto) 13.0 % (21.0-51.0) L 05/06/20 05:12 [place] % (Auto) 9.0 % (0.0-13.0) 05/06/20 05:12 Eos % (Auto) 5.9 % (0.9-2.9) H 05/06/20 05:12 Baso % (Auto) 0.3 % (0.2-1.0) 05/06/20 05:12 Neut # (Auto) 2.5 x10^3/uL (2.2-4.8) 05/06/20 05:12 Lymph # (Auto) 0.5 X10^3/uL (1.3-2.9) L 05/06/20 05:12 [place] # (Auto) 0.3 x10^3/uL (0.3-0.8) 05/06/20 05:12 Eos # (Auto) 0.2 x10^3/uL (0.0-0.2) 05/06/20 05:12 Baso # (Auto) 0.0 X10^3/uL (0.0-0.1) 05/06/20 05:12 Absolute Nucleated RBC 0.0 /100WBC 05/06/20 05:12 Plt Morphology Comment Normal (NORMAL) 05/06/20 05:12 RBC Morphology Normal (NORMAL) 05/06/20 05:12 Sodium 140 mmol/L (136-145) 05/06/20 05:12 Corrected Sodium 142 mmol/L (136-145) 05/06/20 05:12 Potassium 5.1 mmol/L (3.5-5.1) 05/06/20 05:12 Chloride 110 mmol/L (98-107) H 05/06/20 05:12 Carbon Dioxide 24.6 mmol/L (21-32) 05/06/20 05:12 BUN 38 mg/dL (7-18) H 05/06/20 05:12 Creatinine 2.02 mg/dL (0.70-1.30) H 05/06/20 05:12 Est GFR (MDRD) Af Amer 44 (>60) L 05/06/20 05:12 Est GFR (MDRD) Non-Af 36 (>60) L 05/06/20 05:12 Glucose 195 mg/dL (65-99) H 05/06/20 05:12 POC Glucose (mg/dL) 115 mg/dL (65-99) H 05/06/20 18:03 Calcium 8.3 mg/dL (8.5-10.1) L 05/06/20 05:12 Corrected Calcium 9.7 mg/dL (8.5-10.1) 05/06/20 05:12 Total Bilirubin 2.10 mg/dL (0.2-1.0) H 05/06/20 05:12 AST 39 Units/L (15-37) H 05/06/20 05:12 ALT 33 Units/L (12-78) 05/06/20 05:12 Alkaline Phosphatase 70 Units/L (46-116) 05/06/20 05:12 Creatine Kinase 72 Units/L (39-308) 05/05/20 20:58 CK-MB (CK-2) < 1.0 ng/mL (0-4.0) 05/05/20 20:58 CK/CKMB % Calc 1.4 % (<4) 05/05/20 20:58 Troponin I 0.05 ng/mL (0-1.5) 05/05/20 20:58 Total Protein 6.1 g/dL (6.4-8.2) L 05/06/20 05:12 Albumin 2.2 g/dL (3.4-5.0) L 05/06/20 05:12 Globulin 3.9 g/dL (2.5-4.5) 05/06/20 05:12 Albumin/Globulin Ratio 0.6 Ratio (1.1-2.1) L 05/06/20 05:12 SARS CoV-2 RNA Rapid EMANUEL Negative (NEGATIVE) 05/05/20 23:10 Cytology Specimen To follow 05/06/20 12:00 Discharge Medications Discharge Medications: Home Medication List montelukast 10 mg PO HS 05/06/20 [History] ondansetron HCl [Zofran] 4 mg PO Q8H PRN 05/06/20 [History] Prescriptions:
== END 2020-05-06 19:15 | disposition home or self-care (01) ==
LOC: ER 18:48 → OBS 18:48 → MED/SURG 05-06 00:06
PROVIDERS: ADMIT Internal Medicine; ATTEND Family Medicine
DX: K74.69 Other cirrhosis of liver; R94.4 Abnormal results of kidney function studies; Z20.828 Contact with and (suspected) exposure to other viral communicable diseases; E11.65 Type 2 diabetes mellitus with hyperglycemia; I10 Essential (primary) hypertension; R06.02 Shortness of breath; E87.5 Hyperkalemia; R18.8 Other ascites

== ENCOUNTER 2020-07-05 10:02 | Observation (INO) ==
[2020-07-05 13:16] LABS: BASOPHILS # (AUTO) 0.1 X10^3/uL (0.0-0.1); BASOPHILS % (AUTO) 1.3 % (0.2-1.0); EOSINOPHILS # (AUTO) 0.8 x10^3/uL (0.0-0.2); EOSINOPHILS % (AUTO) 16.7 % (0.9-2.9); HEMATOCRIT 33.5 % (42.0-54.0); HEMOGLOBIN 10.9 g/dL (13.5-18.0); LYMPHOCYTES # (AUTO) 0.7 X10^3/uL (1.3-2.9); LYMPHOCYTES % (AUTO) 13.8 % (21.0-51.0); MEAN CORPUSCULAR HEMOGLOBIN 33.7 pg (27.0-34.0); MEAN CORPUSCULAR HGB CONC 32.6 g/dL (33.0-35.0); MEAN CORPUSCULAR VOLUME 103.4 fL (80.0-100.0); MEAN PLATELET VOLUME 7.8 fL (7.4-11.0); MONOCYTES # (AUTO) 0.5 x10^3/uL (0.3-0.8); MONOCYTES % (AUTO) 9.7 % (0.0-13.0); NEUTROPHILS % (AUTO) 58.5 % (42.0-75.0); PLATELET COUNT 77 X10^3/uL (150.0-450.0); RED BLOOD COUNT 3.24 X10^6/uL (4.7-6.0); RED CELL DISTRIBUTION WIDTH 15.4 % (11.6-16.5); WHITE BLOOD COUNT 5.1 X10^3/uL (3.6-10.0)
[2020-07-05 13:27] LABS: ALBUMIN 2.2 g/dL (3.4-5.0); CALCIUM 8.1 mg/dL (8.5-10.1); CARBON DIOXIDE 21.8 mmol/L (21-32); COR CA(FOR HYPOALB) 9.5 mg/dL (8.5-10.1); CREATININE 2.11 mg/dL (0.70-1.30); TOTAL PROTEIN 7.3 g/dL (6.4-8.2)
--- NOTE | 2020-07-05 15:00 | DR.H&P ---
H&P History & Physical for Day of: H&P Date: 07/05/20 Chief Complaint Chief Complaint: Abdominal pain/distention Hepatorenal failure Allergies Allergies Allergy/AdvReac Type Severity Reaction Status Date / Time acetaminophen [From Lortab] Allergy Verified 12/28/19 14:05 aspirin Allergy Verified 12/28/19 14:05 Bleach (Sodium Hypochlorite) Allergy Verified 12/28/19 14:05 hydrocodone [From Lortab] Allergy Verified 12/28/19 14:05 morphine Allergy Verified 12/28/19 14:05 History of Present Illness History of Present Illness: Pt is a 59 year old male pmhx HTN, HERBERT(cirrhosis, on transplant list x 3 years at [place]), DMT2 directly admitted from clinic for worsening abdominal distention and anasarca. Reports symptoms have been causing him abdominal discomfort and distention. Denies fevers, chills. Labs/imaging: Wbc 5.1, Hgb 10.9, Plt 77, INR 1.42, Na 135, K 4.8, Cr 2.11, Glucose 288, Total bilirubin 2.00, AST 35, ALT 24, AlkP 97, U/S abdomen: Large volume ascites. Will resume home medications. Surgery was consulted, will evaluate for paracentesis. Will continue to monitor and follow up labs/imaging in the morning. Past Medical History Past Medical History: Asthma, Cirrhosis, Diabetes, Headaches, Hypertension, Kidney Stones and Sleep Apnea Past Surgical History Surgical History: Cholecystectomy Family History Family Medical History: Diabetes Mellitus, Cancer, [place], Heart Failure, Sudden Cardiac and Hypertension Medications Home Medications: acetaminophen [From Lortab] Allergy (Verified 12/28/19 14:05) aspirin Allergy (Verified 12/28/19 14:05) Bleach (Sodium Hypochlorite) Allergy (Verified 12/28/19 14:05) hydrocodone [From Lortab] Allergy (Verified 12/28/19 14:05) morphine Allergy (Verified 12/28/19 14:05) Labs Result Diagrams: 07/06/20 05:55 07/06/20 05:55 Labs: Laboratory WBC 5.1 X10^3/uL (3.6-10.0) 07/05/20 13:07 RBC 3.24 X10^6/uL (4.7-6.0) L 07/05/20 13:07 Hgb 10.9 g/dL (13.5-18.0) L 07/05/20 13:07 Hct 33.5 % (42.0-54.0) L 07/05/20 13:07 MCV 103.4 fL (80.0-100.0) H 07/05/20 13:07 MCH 33.7 pg (27.0-34.0) 07/05/20 13:07 MCHC 32.6 g/dL (33.0-35.0) L 07/05/20 13:07 RDW 15.4 % (11.6-16.5) 07/05/20 13:07 Plt Count 77 X10^3/uL (150.0-450.0) L 07/05/20 13:07 MPV 7.8 fL (7.4-11.0) 07/05/20 13:07 Neut % (Auto) 58.5 % (42.0-75.0) 07/05/20 13:07 Lymph % (Auto) 13.8 % (21.0-51.0) L 07/05/20 13:07 [place] % (Auto) 9.7 % (0.0-13.0) 07/05/20 13:07 Eos % (Auto) 16.7 % (0.9-2.9) H 07/05/20 13:07 Baso % (Auto) 1.3 % (0.2-1.0) H 07/05/20 13:07 Neut # (Auto) 3.0 x10^3/uL (2.2-4.8) 07/05/20 13:07 Lymph # (Auto) 0.7 X10^3/uL (1.3-2.9) L 07/05/20 13:07 [place] # (Auto) 0.5 x10^3/uL (0.3-0.8) 07/05/20 13:07 Eos # (Auto) 0.8 x10^3/uL (0.0-0.2) H 07/05/20 13:07 Baso # (Auto) 0.1 X10^3/uL (0.0-0.1) 07/05/20 13:07 Absolute Nucleated RBC 0.0 /100WBC 07/05/20 13:07 PT 16.9 SECONDS (11.8-14.3) 07/05/20 13:07 INR Target Range - 07/05/20 13:07 INR 1.42 (0.8-1.3) H 07/05/20 13:07 Sodium 135 mmol/L (136-145) L 07/05/20 13:07 Corrected Sodium 140 mmol/L (136-145) 07/05/20 13:07 Potassium 4.8 mmol/L (3.5-5.1) 07/05/20 13:07 Chloride 107 mmol/L (98-107) 07/05/20 13:07 Carbon Dioxide 21.8 mmol/L (21-32) 07/05/20 13:07 BUN 25 mg/dL (7-18) H 07/05/20 13:07 Creatinine 2.11 mg/dL (0.70-1.30) H 07/05/20 13:07 Est GFR (MDRD) Af Amer 42 (>60) L 07/05/20 13:07 Est GFR (MDRD) Non-Af 34 (>60) L 07/05/20 13:07 Glucose 288 mg/dL (65-99) H 07/05/20 13:07 Calcium 8.1 mg/dL (8.5-10.1) L 07/05/20 13:07 Corrected Calcium 9.5 mg/dL (8.5-10.1) 07/05/20 13:07 Total Bilirubin 2.00 mg/dL (0.2-1.0) H 07/05/20 13:07 AST 35 Units/L (15-37) 07/05/20 13:07 ALT 24 Units/L (12-78) 07/05/20 13:07 Alkaline Phosphatase 97 Units/L (46-116) 07/05/20 13:07 Total Protein 7.3 g/dL (6.4-8.2) 07/05/20 13:07 Albumin 2.2 g/dL (3.4-5.0) L 07/05/20 13:07 Globulin 5.1 g/dL (2.5-4.5) H 07/05/20 13:07 Albumin/Globulin Ratio 0.4 Ratio (1.1-2.1) L 07/05/20 13:07 SARS CoV-2 RNA Rapid EMANUEL Negative (NEGATIVE) 07/05/20 13:35 Review of Systems Constitutional: Weakness Eyes: No Symptoms Reported ENT: No Symptoms Reported Respiratory: No Symptoms Reported Cardiovascular: No Symptoms Reported Gastrointestinal: Abdominal Pain (abdominal distention) Genitourinary: No Symptoms Reported Musculoskeletal: No Symptoms Reported Skin: No Symptoms Reported Neurological: No Symptoms Reported Physical Exam Vital Signs: Temperature 97.6 F Pulse Rate [Left Brachial] 76 Respiratory Rate 20 Blood Pressure [Left Arm] 168/93 O2 Sat by Pulse Oximetry 97 Oriented: Normal Eyes: Normal Ear: Normal Nose: Normal Throat: Normal Respiratory: Clear Throughout Cardiovascular: Normal : Normal Auscultation: Bowel Sounds: Normal Palpation: Normal and Other (fluid wave positive) Tenderness: Normal Skin: Normal Musculoskeletal: Leg (b/l 3+ edema) Psychiatric: Normal Mood Description: Calm and Appropriate Affect: Normal Speech Pattern: Clear and Appropriate Assessment/Plan (1) Abdominal ascites: Qualifiers: Ascites type: other type Qualified Code(s): R18.8 - Other ascites Status: Acute Plan: Surgery consulted Paracentesis in the morning (2) Advanced cirrhosis of liver: Status: Acute Review H&P Reviewed: Yes Patient was examined?: Yes
--- NOTE | 2020-07-05 15:22 | US ---
LIMITED ABDOMEN/QUADRANTHISTORY: abd distention, cirrhosis, ascitiesComparison: NoneTechnique: Multiple frausto scale and color flow Doppler images of the abdomen were obtained.Findings:Diffuse large volume ascites throughout the abdomen.IMPRESSION:1. Large volume ascites.Electronically signed by: VIC MARTIN (Jul 05, 2020 15:20:32)
[2020-07-05 16:10] VITALS: BMI 35.4
[2020-07-05] MEDS ORDERED: ZOFRAN TAB 4 MG PO PRN (16:12)
[2020-07-05] MEDS: HumuLIN R SC PRN (17:01)
[2020-07-05] MEDS: COREG TAB 12.5 MG PO SCH (21:00)
[2020-07-05] MEDS: ROXICODONE TAB 5 MG PO PRN (21:00)
[2020-07-06 06:38] LABS: ALBUMIN 1.9 g/dL (3.4-5.0); CALCIUM 7.9 mg/dL (8.5-10.1); CARBON DIOXIDE 23.7 mmol/L (21-32); COR CA(FOR HYPOALB) 9.6 mg/dL (8.5-10.1); CREATININE 2.13 mg/dL (0.70-1.30); TOTAL PROTEIN 6.3 g/dL (6.4-8.2)
[2020-07-06 06:45] LABS: EOSINOPHILS # (AUTO) 0.3 x10^3/uL (0.0-0.2); EOSINOPHILS % (AUTO) 12.9 % (0.9-2.9); HEMATOCRIT 28.6 % (42.0-54.0); HEMOGLOBIN 9.6 g/dL (13.5-18.0); LYMPHOCYTES # (AUTO) 0.5 X10^3/uL (1.3-2.9); LYMPHOCYTES % (AUTO) 20.7 % (21.0-51.0); MEAN CORPUSCULAR HEMOGLOBIN 34.1 pg (27.0-34.0); MEAN CORPUSCULAR HGB CONC 33.5 g/dL (33.0-35.0); MEAN CORPUSCULAR VOLUME 101.9 fL (80.0-100.0); MEAN PLATELET VOLUME 8.1 fL (7.4-11.0); MONOCYTES # (AUTO) 0.2 x10^3/uL (0.3-0.8); MONOCYTES % (AUTO) 9.8 % (0.0-13.0); NEUTROPHILS # (AUTO) 1.3 x10^3/uL (2.2-4.8); NEUTROPHILS % (AUTO) 55.6 % (42.0-75.0); PLATELET COUNT 47 X10^3/uL (150.0-450.0); RED BLOOD COUNT 2.81 X10^6/uL (4.7-6.0); RED CELL DISTRIBUTION WIDTH 14.5 % (11.6-16.5); WHITE BLOOD COUNT 2.4 X10^3/uL (3.6-10.0)
[2020-07-06 07:03] LABS: BASOPHILS % (MANUAL) 1 % (0-1)
[2020-07-06 07:04] LABS: PLATELET MORPHOLOGY COMMENT NORMAL (NORMAL)
[2020-07-06] MEDS: COREG TAB 12.5 MG PO SCH ×2 (08:48→21:41)
[2020-07-06] MEDS ORDERED: ALDACTONE TAB 25 MG PO SCH (09:00)
--- NOTE | 2020-07-06 13:25 | RAD ---
HISTORYASCITES GB, HTN, DIABETES, ASTHMA, [id number]/01/2020FINDINGSPatient is status post cholecystectomy. There is air and stool throughout the large bowel loops. There are no abnormal dilated small bowel loops. There are s ome few air containing small bowel loops in the right lower abdomen seen in two views could represent sentinel loops. The osseus structures are unremarkable.IMPRESSIONMild constipation. Air containing small bowel loops in the right lower quadrant and near to the midline, it could represent sentinel lo ops.Electronically signed by: Coby Sanchez (Jul 06, 2020 13:23:20)
[2020-07-06] MEDS: ROXICODONE TAB 5 MG PO PRN (17:54)
--- NOTE | 2020-07-06 21:14 | PCM.PROG ---
Progress Note Progress Note for Day of Date of Exam: 07/06/20 Subjective Subjective: Pt is a 59 year old male pmhx HTN, HERBERT(cirrhosis, on transplant list x 3 years at [place]), DMT2 directly admitted for large volume ascites. This morning he reports edema and abdominal distention. No acute events overnight. Labs/imaging: Wbc 2.4, Hgb 9.6, Plt 47, INR 1.42, Na 139, K 4.9, Cr 2.13, Glucose 192, Total bilirubin 1.30, AST 33, ALT 17, AlkP 89, U/S abdomen: Large volume ascites. Surgery was consulted, paracentesis scheduled today. KUB ordered. Will continue to monitor and follow up labs/imaging in the morning. Past Medical Family Social History Past Med/Fam/Surg Hx: No changes since H&P Allergies: Allergies acetaminophen [From Lortab] Allergy (Verified 12/28/19 14:05) aspirin Allergy (Verified 12/28/19 14:05) Bleach (Sodium Hypochlorite) Allergy (Verified 12/28/19 14:05) hydrocodone [From Lortab] Allergy (Verified 12/28/19 14:05) morphine Allergy (Verified 12/28/19 14:05) Review of Systems ROS: No change since H&P Vital Signs and I&O's Vital Signs: Temperature 98 F Pulse Rate [Left Brachial] 71 Respiratory Rate 18 Blood Pressure [Left Arm] 140/67 O2 Sat by Pulse Oximetry 97 Intake and Output: Intake & Output 07/03/20 07/04/20 07/05/20 07/06/20 23:59 23:59 23:59 23:59 Intake Total 100 / 100 0 / 0 Output Total 225 / 225 2850 / 2850 Balance -125 / -125 -2850 / -2850 Physical Exam Oriented: Normal Eyes: Normal Ear: Normal Nose: Normal Throat: Normal Respiratory: Normal Cardiovascular: Normal : Normal Auscultation: Bowel Sounds: Normal Tenderness: Normal Skin: Normal Musculoskeletal: Leg (b/l 3+ edema) Psychiatric: Normal Mood Description: Calm and Appropriate Affect: Normal Speech Pattern: Clear and Appropriate Laboratory and Diagnostics Result Diagrams: 07/07/20 05:20 07/07/20 05:20 Labs: Laboratory WBC 2.4 X10^3/uL (3.6-10.0) L 07/06/20 05:55 RBC 2.81 X10^6/uL (4.7-6.0) L 07/06/20 05:55 Hgb 9.6 g/dL (13.5-18.0) L 07/06/20 05:55 Hct 28.6 % (42.0-54.0) L 07/06/20 05:55 MCV 101.9 fL (80.0-100.0) H 07/06/20 05:55 MCH 34.1 pg (27.0-34.0) H 07/06/20 05:55 MCHC 33.5 g/dL (33.0-35.0) 07/06/20 05:55 RDW 14.5 % (11.6-16.5) 07/06/20 05:55 Plt Count 47 X10^3/uL (150.0-450.0) L 07/06/20 05:55 Plt Count Comment Decreased (ADEQUATE) 07/06/20 05:55 MPV 8.1 fL (7.4-11.0) 07/06/20 05:55 Neut % (Auto) 55.6 % (42.0-75.0) 07/06/20 05:55 Lymph % (Auto) 20.7 % (21.0-51.0) L 07/06/20 05:55 [place] % (Auto) 9.8 % (0.0-13.0) 07/06/20 05:55 Eos % (Auto) 12.9 % (0.9-2.9) H 07/06/20 05:55 Baso % (Auto) 1.0 % (0.2-1.0) 07/06/20 05:55 Neut # (Auto) 1.3 x10^3/uL (2.2-4.8) L 07/06/20 05:55 Lymph # (Auto) 0.5 X10^3/uL (1.3-2.9) L 07/06/20 05:55 [place] # (Auto) 0.2 x10^3/uL (0.3-0.8) L 07/06/20 05:55 Eos # (Auto) 0.3 x10^3/uL (0.0-0.2) H 07/06/20 05:55 Baso # (Auto) 0.0 X10^3/uL (0.0-0.1) 07/06/20 05:55 Absolute Nucleated RBC 0.1 /100WBC 07/06/20 05:55 Total Counted 100 07/06/20 05:55 Neutrophils % (Manual) 62 % (39-76) 07/06/20 05:55 Lymphocytes % (Manual) 20 % (13-43) 07/06/20 05:55 Monocytes % (Manual) 5 % (4-9) 07/06/20 05:55 Eosinophils % (Manual) 12 % (0-6) H 07/06/20 05:55 Basophils % (Manual) 1 % (0-1) 07/06/20 05:55 Plt Morphology Comment Normal (NORMAL) 07/06/20 05:55 RBC Morphology Abnormal (NORMAL) 07/06/20 05:55 Macrocytosis Slight A 07/06/20 05:55 PT 16.9 SECONDS (11.8-14.3) 07/05/20 13:07 INR Target Range - 07/05/20 13:07 INR 1.42 (0.8-1.3) H 07/05/20 13:07 Sodium 139 mmol/L (136-145) 07/06/20 05:55 Corrected Sodium 141 mmol/L (136-145) 07/06/20 05:55 Potassium 4.9 mmol/L (3.5-5.1) 07/06/20 05:55 Chloride 111 mmol/L (98-107) H 07/06/20 05:55 Carbon Dioxide 23.7 mmol/L (21-32) 07/06/20 05:55 BUN 27 mg/dL (7-18) H 07/06/20 05:55 Creatinine 2.13 mg/dL (0.70-1.30) H 07/06/20 05:55 Est GFR (MDRD) Af Amer 41 (>60) L 07/06/20 05:55 Est GFR (MDRD) Non-Af 34 (>60) L 07/06/20 05:55 Glucose 192 mg/dL (65-99) H 07/06/20 05:55 POC Glucose (mg/dL) 159 mg/dL (65-99) H 07/06/20 16:54 Calcium 7.9 mg/dL (8.5-10.1) L 07/06/20 05:55 Corrected Calcium 9.6 mg/dL (8.5-10.1) 07/06/20 05:55 Total Bilirubin 1.30 mg/dL (0.2-1.0) H 07/06/20 05:55 AST 33 Units/L (15-37) 07/06/20 05:55 ALT 17 Units/L (12-78) 07/06/20 05:55 Alkaline Phosphatase 89 Units/L (46-116) 07/06/20 05:55 Total Protein 6.3 g/dL (6.4-8.2) L 07/06/20 05:55 Albumin 1.9 g/dL (3.4-5.0) L 07/06/20 05:55 Globulin 4.4 g/dL (2.5-4.5) 07/06/20 05:55 Albumin/Globulin Ratio 0.4 Ratio (1.1-2.1) L 07/06/20 05:55 SARS CoV-2 RNA Rapid EMANUEL Negative (NEGATIVE) 07/05/20 13:35 Plan (1) Abdominal ascites: Status: Acute Qualifiers: Ascites type: other type Qualified Code(s): R18.8 - Other ascites Plan: Surgery consulted Paracentesis scheduled today (2) Advanced cirrhosis of liver: Status: Acute
[2020-07-06] MEDS: HumuLIN R SC PRN (21:55)
[2020-07-07 06:06] LABS: BASOPHILS % (AUTO) 1.1 % (0.2-1.0); EOSINOPHILS # (AUTO) 0.2 x10^3/uL (0.0-0.2); EOSINOPHILS % (AUTO) 11.9 % (0.9-2.9); HEMATOCRIT 26.6 % (42.0-54.0); HEMOGLOBIN 8.9 g/dL (13.5-18.0); LYMPHOCYTES # (AUTO) 0.4 X10^3/uL (1.3-2.9); LYMPHOCYTES % (AUTO) 21.8 % (21.0-51.0); MEAN CORPUSCULAR HGB CONC 33.3 g/dL (33.0-35.0); MEAN CORPUSCULAR VOLUME 102.1 fL (80.0-100.0); MEAN PLATELET VOLUME 7.9 fL (7.4-11.0); MONOCYTES # (AUTO) 0.2 x10^3/uL (0.3-0.8); MONOCYTES % (AUTO) 9.5 % (0.0-13.0); NEUTROPHILS % (AUTO) 55.7 % (42.0-75.0); PLATELET COUNT 42 X10^3/uL (150.0-450.0); RED BLOOD COUNT 2.61 X10^6/uL (4.7-6.0); RED CELL DISTRIBUTION WIDTH 14.7 % (11.6-16.5)
[2020-07-07 06:19] LABS: ALBUMIN 1.7 g/dL (3.4-5.0); CALCIUM 7.8 mg/dL (8.5-10.1); COR CA(FOR HYPOALB) 9.6 mg/dL (8.5-10.1); CREATININE 2.08 mg/dL (0.70-1.30); TOTAL PROTEIN 5.8 g/dL (6.4-8.2)
[2020-07-07 06:36] LABS: WHITE BLOOD COUNT 1.8 X10^3/uL (3.6-10.0)
[2020-07-07 06:43] LABS: BASOPHILS % (MANUAL) 2 % (0-1); PLATELET MORPHOLOGY COMMENT NORMAL (NORMAL)
[2020-07-07 08:24] VITALS: BP 138/64
[2020-07-07] MEDS ORDERED: ALBUMIN HUMAN 25%- 100 ML 100 ML IV SCH (09:00)
[2020-07-07] MEDS ORDERED: ALDACTONE TAB 25 MG PO SCH (09:00)
[2020-07-07] MEDS: COREG TAB 12.5 MG PO SCH (10:01)
--- NOTE | 2020-07-07 10:30 | W.DIS.FURT ---
Summary of Discharge Discharge Summary of Date Date of Exam: 07/07/20 Admission Date Date of Admission: 07/05/20 Admission Diagnosis Hospital Course: Pt is a 59 year old male pmhx HTN, HERBERT(cirrhosis, on transplant list x 3 years at [place]), DMT2 directly admitted for large volume ascites. Pt had paracentesis performed yesterday without complications, removing large volume fluid. Pt feeling better this morning, reports reduced swelling and abdominal distention. No acute events overnight. Labs/imaging: Wbc 1.8, Hgb 8.9, Plt 42, Na 139, K 4.7, Cr 2.08, Glucose 202, Total bilirubin 1.20, AST 28, ALT 23, AlkP 79. Surgery has ordered albumin infusion today. Discussed with case management to have pt scheduled for follow up with [facility] that he sees outpatient his cirrhosis. CM returned call stating she spoke with [facility] and was told that he was not deemed a candidate for transplant and is not on transplant list. Discussed this with patient's pcp who will be following up with patient. Pt to follow up with GI/Hepatology Dr Christian outpatient. Pt discharged in stable condition. Instructed to follow up with pcp in 3-5 days. Vital Signs: Vital Signs (72 hours) 07/05/20 14:15 07/05/20 16:00 07/05/20 20:00 Temperature 97.6 F 97.6 F 97.9 F Pulse Rate [Left Brachial] 76 82 82 Respiratory Rate 20 20 18 Blood Pressure [Left Arm] 168/93 137/84 120/65 O2 Sat by Pulse Oximetry 97 97 97 07/05/20 21:00 07/05/20 22:00 07/06/20 00:00 Temperature 97.8 F Pulse Rate [Left Brachial] 77 Respiratory Rate 18 18 12 Blood Pressure [Left Arm] 115/68 O2 Sat by Pulse Oximetry 96 07/06/20 04:00 07/06/20 08:00 07/06/20 11:52 Temperature 97.9 F 98 F 98 F Pulse Rate [Left Brachial] 77 73 72 Respiratory Rate 14 18 18 Blood Pressure [Left Arm] 130/85 123/74 104/55 O2 Sat by Pulse Oximetry 97 97 96 07/06/20 15:28 07/06/20 16:00 07/06/20 17:54 Temperature 98.4 F 98 F Pulse Rate [Left Brachial] 82 71 Respiratory Rate 18 22 18 Blood Pressure [Left Arm] 147/76 140/67 O2 Sat by Pulse Oximetry 95 97 07/06/20 18:54 07/06/20 20:00 07/07/20 00:00 Temperature 98.3 F 98.5 F Pulse Rate [Left Brachial] 77 77 Respiratory Rate 18 20 16 Blood Pressure [Left Arm] 137/72 132/59 O2 Sat by Pulse Oximetry 96 96 07/07/20 04:00 07/07/20 08:00 Temperature 98.1 F 98.3 F Pulse Rate [Left Brachial] 80 76 Respiratory Rate 16 22 Blood Pressure [Left Arm] 113/58 138/64 O2 Sat by Pulse Oximetry 96 96 Labs: Laboratory Last Values WBC 1.8 X10^3/uL (3.6-10.0) L* 07/07/20 05:20 RBC 2.61 X10^6/uL (4.7-6.0) L 07/07/20 05:20 Hgb 8.9 g/dL (13.5-18.0) L 07/07/20 05:20 Hct 26.6 % (42.0-54.0) L 07/07/20 05:20 MCV 102.1 fL (80.0-100.0) H 07/07/20 05:20 MCH 34.0 pg (27.0-34.0) 07/07/20 05:20 MCHC 33.3 g/dL (33.0-35.0) 07/07/20 05:20 RDW 14.7 % (11.6-16.5) 07/07/20 05:20 Plt Count 42 X10^3/uL (150.0-450.0) L 07/07/20 05:20 Plt Count Comment Decreased (ADEQUATE) 07/07/20 05:20 MPV 7.9 fL (7.4-11.0) 07/07/20 05:20 Neut % (Auto) 55.7 % (42.0-75.0) 07/07/20 05:20 Lymph % (Auto) 21.8 % (21.0-51.0) 07/07/20 05:20 Rabun % (Auto) 9.5 % (0.0-13.0) 07/07/20 05:20 Eos % (Auto) 11.9 % (0.9-2.9) H 07/07/20 05:20 Baso % (Auto) 1.1 % (0.2-1.0) H 07/07/20 05:20 Neut # (Auto) 1.0 x10^3/uL (2.2-4.8) L 07/07/20 05:20 Lymph # (Auto) 0.4 X10^3/uL (1.3-2.9) L 07/07/20 05:20 Rabun # (Auto) 0.2 x10^3/uL (0.3-0.8) L 07/07/20 05:20 Eos # (Auto) 0.2 x10^3/uL (0.0-0.2) 07/07/20 05:20 Baso # (Auto) 0.0 X10^3/uL (0.0-0.1) 07/07/20 05:20 Absolute Nucleated RBC 0.1 /100WBC 07/07/20 05:20 Total Counted 50 07/07/20 05:20 Neutrophils % (Manual) 50 % (39-76) 07/07/20 05:20 Lymphocytes % (Manual) 26 % (13-43) 07/07/20 05:20 Monocytes % (Manual) 12 % (4-9) H 07/07/20 05:20 Eosinophils % (Manual) 10 % (0-6) H 07/07/20 05:20 Basophils % (Manual) 2 % (0-1) H 07/07/20 05:20 Plt Morphology Comment Normal (NORMAL) 07/07/20 05:20 RBC Morphology Abnormal (NORMAL) 07/07/20 05:20 Macrocytosis Slight A 07/07/20 05:20 PT 16.9 SECONDS (11.8-14.3) 07/05/20 13:07 INR Target Range - 07/05/20 13:07 INR 1.42 (0.8-1.3) H 07/05/20 13:07 Sodium 139 mmol/L (136-145) 07/07/20 05:20 Corrected Sodium 141 mmol/L (136-145) 07/07/20 05:20 Potassium 4.7 mmol/L (3.5-5.1) 07/07/20 05:20 Chloride 111 mmol/L (98-107) H 07/07/20 05:20 Carbon Dioxide 24.0 mmol/L (21-32) 07/07/20 05:20 BUN 31 mg/dL (7-18) H 07/07/20 05:20 Creatinine 2.08 mg/dL (0.70-1.30) H 07/07/20 05:20 Est GFR (MDRD) Af Amer 42 (>60) L 07/07/20 05:20 Est GFR (MDRD) Non-Af 35 (>60) L 07/07/20 05:20 Glucose 202 mg/dL (65-99) H 07/07/20 05:20 POC Glucose (mg/dL) 187 mg/dL (65-99) H 07/07/20 05:20 Calcium 7.8 mg/dL (8.5-10.1) L 07/07/20 05:20 Corrected Calcium 9.6 mg/dL (8.5-10.1) 07/07/20 05:20 Total Bilirubin 1.20 mg/dL (0.2-1.0) H 07/07/20 05:20 AST 28 Units/L (15-37) 07/07/20 05:20 ALT 23 Units/L (12-78) 07/07/20 05:20 Alkaline Phosphatase 79 Units/L (46-116) 07/07/20 05:20 Total Protein 5.8 g/dL (6.4-8.2) L 07/07/20 05:20 Albumin 1.7 g/dL (3.4-5.0) L 07/07/20 05:20 Globulin 4.1 g/dL (2.5-4.5) 07/07/20 05:20 Albumin/Globulin Ratio 0.4 Ratio (1.1-2.1) L 07/07/20 05:20 SARS CoV-2 RNA Rapid EMANUEL Negative (NEGATIVE) 07/05/20 13:35 Reason For Visit: ASCITES Discharge Date Discharge Date: 07/07/20 Discharge Diagnosis All Active Problems (Updated 05/05/20 @ 22:46 by Sandra Calvert) Advanced cirrhosis of liver (Acute) Portal venous hypertension (Acute) Cholelithiasis (Acute) Cirrhosis of liver (Acute) Increased ammonia level (Acute) Altered mental status (Acute) Hypertension (Acute) Diabetes (Acute) Respiratory distress (Acute) Pneumonia (Acute) Chronic sinusitis (Acute) Atrophy, cortical (Acute) Acute dehydration (Acute) Abdominal ascites (Acute) Acute hyperkalemia (Acute) Dyspnea (Acute) Plan of Treatment: Continue with present treatment and follow up plan. Pt is to keep follow up appointment as instructed and take medications as ordered. Discharge Medications Discharge Medications: acetaminophen [From Lortab] Allergy (Verified 12/28/19 14:05) aspirin Allergy (Verified 12/28/19 14:05) Bleach (Sodium Hypochlorite) Allergy (Verified 12/28/19 14:05) hydrocodone [From Lortab] Allergy (Verified 12/28/19 14:05) morphine Allergy (Verified 12/28/19 14:05) CONTINUE taking the following medications gabapentin 600 mg PO QHS 07/05/20 [History] metolazone 2.5 mg PO DAILY 07/05/20 [History] oxycodone 5 mg PO BID PRN 07/05/20 [History] New Prescriptions spironolactone [Aldactone] 25 mg PO DAILY 30 Days #30 tab 07/07/20 [Rx] Follow up and Referral Follow Up: 1 Week Discharge Disposition Discharge Disposition: Home Discharge Condition: Stable Discharge Plan Discharge Plan Hospital Course: Pt is a 59 year old male pmhx HTN, HERBERT(cirrhosis, on transplant list x 3 years at [place]), DMT2 directly admitted for large volume ascites. Pt had paracentesis performed yesterday without complications, removing large volume fluid. Pt feeling better this morning, reports reduced swelling and abdominal distention. No acute events overnight. Labs/imaging: Wbc 1.8, Hgb 8.9, Plt 42, Na 139, K 4.7, Cr 2.08, Glucose 202, Total bilirubin 1.20, AST 28, ALT 23, AlkP 79. Surgery has ordered albumin infusion today. Discussed with case management to have pt scheduled for follow up with [facility] that he sees outpatient his cirrhosis. CM returned call stating she spoke with [facility] and was told that he was not deemed a candidate for transplant and is not on transplant list. Discussed this with patient's pcp who will be following up with patient. Pt to follow up with GI/Hepatology Dr Christian outpatient. Pt discharged in stable condition. Instructed to follow up with pcp in 3-5 days. Patient Disposition: 01 HOME, SELF-CARE Condition: Stable Health Concerns: Post Hospitalization: new medications and changes needed to prevent readmission or further decline. Pt educated and given instructions on all concerns. Care Plan Goals: Problem: Fluid Volume Overload Goal: Maintain/Improved Adequate hydration. Instructions: Follow provided instructions. Follow up with primary physician as directed. Contact primary care physician or report to the closest Emergency Room if condition worsens. Plan of Treatment: Continue with present treatment and follow up plan. Pt is to keep follow up appointment as instructed and take medications as ordered. Prescriptions: Continued furosemide [Lasix] 40 mg Tablet 40 mg PO DAILY RF: 0 carvedilol 6.25 mg Tablet 12.5 mg PO BID RF: 0 omeprazole 40 mg Capsule,Delayed Release(Dr/Ec) 40 mg PO DAILY RF: 0 gabapentin 300 mg Capsule 300 mg PO DAILY RF: 0 montelukast 10 mg Tablet 10 mg PO HS RF: 0 ondansetron HCl [Zofran] 4 mg tablet 4 mg PO Q8H PRNRF: 0 gabapentin 300 mg Capsule 600 mg PO QHS RF: 0 metolazone 2.5 mg tablet 2.5 mg PO DAILY RF: 0 oxycodone 5 mg tablet 5 mg PO BID PRNRF: 0 Changed spironolactone [Aldactone] 50 mg tablet 25 mg PO DAILY 30 Days Qty: 30 RF: 0 Discontinued insulin glargine 100 unit/mL solution 70 units Sub-Q BID RF: 0 Orders to Discharge Patient Discharge Orders: Discharge (Routine); Ordered 07/07/20 Ordered By: Adam Balderrama Follow ups/Referrals Follow ups/Referrals: Dr. Saqib Weldon [Other] (Office to call you or associate financial planner at hospital will call you with appointment.) MAURA BUENO [STAFF PHYSICIAN] - (As needed) VIVEK OROZCO [Nurse Practitioner] - 07/14/20 9:00 am Instructions Instructions: Fall Prevention in the Home, Adult, [id number], Ascites, Type 2 Diabetes Mellitus, Self Care, Adult, [id number], Liver Failure, Cirrhosis, Hypertension, [id number] Stand Alone Forms: Precautions for COVID19, Patient Portal, Social Distancing
[2020-07-07] MEDS: HumuLIN R SC PRN (11:31)
== END 2020-07-07 12:30 | disposition home or self-care (01) ==
LOC: OBS → MED/SURG 07-06 15:17
PROVIDERS: ADMIT Family Medicine; ATTEND Family Medicine
DX: R14.0 Abdominal distension (gaseous); Z76.82 Awaiting organ transplant status; Z20.822 Contact with and (suspected) exposure to COVID-19; R79.1 Abnormal coagulation profile; R18.8 Other ascites; K74.69 Other cirrhosis of liver; K76.7 Hepatorenal syndrome; I10 Essential (primary) hypertension; R06.02 Shortness of breath; R26.9 Unspecified abnormalities of gait and mobility; E86.0 Dehydration; E11.8 Type 2 diabetes mellitus with unspecified complications